=== PATIENT | female | born 1930 | race Caucasian/White ===

== ENCOUNTER 2016-03-21 15:06 | Emergency (ER) | payer OTHER ==
[~2016-03-21] VITALS: Ht 165.1 cm; Wt 79.8 kg
[~2016-03-21 15:06] MED LIST: ASCOCRY2 PO; ASPI81TA28 PO; CHOLTAB3 PO; DIGE1CAP7 PO; HAWTCAP PO; LEVO25TA5 PO; MAGN400T6 PO; MISCTAB PO; MULT-513 PO; ONDA4TAB46 PO; VITA400C15 PO
[2016-03-21 15:15] VITALS: TEMP 36.8; Ht 165.1 cm; Wt 79.8 kg
[2016-03-21] MEDS ORDERED: CHOL400T PO (15:42)
[2016-03-21] MEDS ORDERED: VITA400C3 PO (15:42)
[2016-03-21 16:06] LABS: BASO % 0.8 %; BASO ABS # 0.04 K/uL (0-0.2); COMPLETE YES; HEMATOCRIT 40.8 % (37-47); IG% 0.2 %; LYMPH % 32.9 %; LYMPH ABS # 1.62 K/uL (1.2-3.4); MEAN CELL VOLUME 95.8 fL (80-100); MEAN CORPUSCULAR HEMOGLOBIN 34.3 pg (25-34); MEAN CORPUSCULAR HGB CONC 35.8 g/dl (32-36); MEAN PLATELET VOLUME 9.9 fL (7.4-10.4); MONO % 10.5 %; NEUT % 53.6 %; PLATELET COUNT 221 K/uL (130-400); RED BLOOD COUNT 4.26 M/uL (4.2-5.4); WHITE BLOOD COUNT 4.93 K/uL (4.8-10.8)
--- NOTE | 2016-03-21 16:15 | EMERGENCY ROOM VISIT NOTE ---
ED Visit Note First contact with patient: 15:23 I have seen and examined this patient with Otf Feliz and generally agree with the treatment plan as discussed. Problem List Medical Problems: (1) Bronchitis Status: Resolved (2) Digestive problems Status: Chronic (3) Heart disease Status: Chronic Current/Historical Medications Scheduled Ascorbic Acid (Nathaly-C), Unknown Dose PO DAILY Aspirin (Aspirin Ec), 81 MG PO DAILY Cholecalciferol (Vitamin D), Unknown Dose PO DAILY Digestive Enzymes (Digestive Enzymes), 1 CAP PO WM [place] ([place] G[place]al), 550 MG PO DAILY Levothyroxine Sodium (Levothyroxine Sodium), 25 MCG PO DAILY Magnesium Oxide (Mag-Ox), 400 MG PO PM Multivitamins/Minerals (Mvi With Minerals), 1 TAB PO DAILY Vitamin E (Vitamin E 400 Iu), 400 INTER.UNIT PO DAILY Scheduled PRN Misc Natural Products (Dmg), 1 CAP PO DAILY PRN for SUPPLEMENT Allergies Coded Allergies: No Known Allergies (Unverified , 01/12/16) Vital Signs Date Time Temp Pulse Resp B/P Pulse Ox O2 Delivery O2 Flow Rate FiO2 03/21/16 15:15 36.8 85 18 194/98 98 Room Air Laboratory Results 03/21/16 15:50 Red Blood Count 4.26, Mean Corpuscular Volume 95.8, Mean Corpuscular Hemoglobin 34.3, Mean Corpuscular Hemoglobin Concent 35.8, Mean Platelet Volume 9.9, Neutrophils (%) (Auto) 53.6, Lymphocytes (%) (Auto) 32.9, Monocytes (%) (Auto) 10.5, Eosinophils (%) (Auto) 2.0, Basophils (%) (Auto) 0.8, Neutrophils # (Auto ) 2.64, Lymphocytes # (Auto) 1.62, Monocytes # (Auto) 0.52, Eosinophils # (Auto ) 0.10, Basophils # (Auto) 0.04 Test 03/21/16 15:50 White Blood Count 4.93 K/uL (4.8-10.8) Red Blood Count 4.26 M/uL (4.2-5.4) Hemoglobin 14.6 g/dL (12.0-16.0) Hematocrit 40.8 % (37-47) Mean Corpuscular Volume 95.8 fL (80-100) Mean Corpuscular Hemoglobin 34.3 pg (25-34) Mean Corpuscular Hemoglobin Concent 35.8 g/dl (32-36) Platelet Count 221 K/uL (130-400) Mean Platelet Volume 9.9 fL (7.4-10.4) Neutrophils (%) (Auto) 53.6 % Lymphocytes (%) (Auto) 32.9 % Monocytes (%) (Auto) 10.5 % Eosinophils (%) (Auto) 2.0 % Basophils (%) (Auto) 0.8 % Neutrophils # (Auto) 2.64 K/uL (1.4-6.5) Lymphocytes # (Auto) 1.62 K/uL (1.2-3.4) Monocytes # (Auto) 0.52 K/uL (0.11-0.59) Eosinophils # (Auto) 0.10 K/uL (0-0.5) Basophils # (Auto) 0.04 K/uL (0-0.2) RDW Standard Deviation 44.5 fL (36.4-46.3) RDW Coefficient of Variation 12.8 % (11.5-14.5) Immature Granulocyte % (Auto) 0.2 % Immature Granulocyte # (Auto) 0.01 K/uL (0.00-0.02) Departure Information Referrals Stevie Oh M.D. (PCP) Patient Instructions My [facility]
[2016-03-21 16:23] LABS: BUN/CREATININE RATIO 9.1 (10-20); CALCIUM 8.7 mg/dl (8.5-10.1); CREATININE 0.75 mg/dl (0.60-1.20); POTASSIUM 3.7 mmol/L (3.5-5.1)
[2016-03-21] MEDS ORDERED: OPTIRAY 320 IV PRN (16:30)
--- NOTE | 2016-03-21 17:19 | DIAGNOSTIC IMAGING REPORT ---
MAXILLOFACIAL CT WITH CONTRAST CT DOSE: 689.70 mGy.cm CLINICAL HISTORY: Left sided facial/jaw pain. TECHNIQUE: Axial images through the face were obtained following intravenous injection of 116 cc of Optiray 320 IV. Coronal and sagittal reformats were viewed. COMPARISON STUDY: Head CT July 27, 2010. FINDINGS: Visualized portions of the intracranial contents are unremarkable on this examination. The orbits are within normal limits. Sinuses and mastoid air cells are clear. Major vasculature of the upper neck is patent. No abnormalities of the parotid or submandibular glands are present. This examination is compromised by streak artifact from multiple dental amalgams. Several teeth are absent. No odontogenic abscess is identified. Visualized portions of the airway are patent. Epiglottis is normal. There is a moderate-sized joint effusion of the left temporomandibular joint. There is irregular contour with flattening of the left mandibular condyle with subchondral lucency. Flattening with irregularity the right mandibular condyle is noted. No right temporomandibular joint effusion is identified. IMPRESSION: Left temporomandibular joint effusion with synovial enhancement. This joint effusion is nonspecific and is statistically degenerative in etiology. However, a septic arthritis or rheumatoid arthritis could appear similar. Significant joint space narrowing with irregularity of the mandibular condyles and glenoid fossae bilaterally consistent with arthritis of both temporomandibular joints. Electronically signed by: Austin Jimenez M.D. 03/21/2016 5:17 PM Dictated Date/Time: 03/21/2016 5:07 PM
[2016-03-21] MEDS ORDERED: METH4PAK PO (18:02)
[2016-03-21 18:14] VITALS: BP 184/90; PULSE 82; O2SAT 97
--- NOTE | 2016-03-22 14:48 | EMERGENCY ROOM VISIT NOTE ---
ED Visit Note First contact with patient: 15:23 Chief Complaint: Left-sided jaw pain. History of Present Illness: Ms. Nam is an 85-year-old white female who ambulates into the ED accompanied by her complaining of left sided mandibular pain in the area of the TMJ. Patient reports in January she bit down on a hard bagel and developed jaw pain. She reports for 3 or 4 days the pain was severe but then gradually decreasing in intensity. Over the last 24 hours it has rebounded and has become more severe. She describes her pain as a deep achy sensation. She rates her discomfort 8/ 10. The pain radiates into the entire left side of the face. Her pain worsens with opening and closing of the jaw, palpation. She is not identified any alleviating factors related to the pain. She has not taken any medications for pain prior to arrival at the hospital. She denies any associated symptoms including fevers, chills, sweats, skin eruptions, headaches, dizziness, lightheadedness, recent direct trauma, dental pain, facial swelling, fevers, hearing changes, visual changes, neck pain/stiffness, difficulty swallowing, sensations of throat swelling, upper respiratory tract symptoms, shortness of breath, chest pain, palpitations, abdominal pain, decreased appetite, nausea/ vomiting. Review of Systems: As noted above in history of present illness. All body systems were reviewed and found to be negative as noted above. Past Medical History: Mitral valve prolapse, hypothyroidism, pulmonary embolism. Current Medications: Medications Dose Route/Sig Max Daily Dose Days Date Category Vitamin E 400 Iu (Vitamin E) 400 Unit Cap 400 Inter.unit PO DAILY 03/21/16 Reported Vitamin D (Cholecalciferol) 400 Unit Tab Unknown Dose PO DAILY 03/21/16 Reported Aspirin Ec (Aspirin) 81 Mg Tab 81 Mg PO DAILY 09/05/15 Reported Dmg (Misc Natural Products) 1 Tab Tab 1 Cap PO DAILY PRN 09/05/15 Reported Mag-Ox (Magnesium Oxide) 400 Mg Tab 400 Mg PO PM 09/05/15 Reported Nathaly-C (Ascorbic Acid) 1 Cry Cry Unknown Dose PO DAILY 09/05/15 Reported Digestive Enzymes 1 Cap Cap 1 Cap PO WM 03/12/15 Reported [place] ([place]) 550 Mg Cap 550 Mg PO DAILY 03/12/15 Reported Mvi With Minerals (Multivitamins/Minerals) Tab 1 Tab PO DAILY 03/12/15 Reported Levothyroxine Sodium 25 Mcg Tab 25 Mcg PO DAILY 03/12/15 Reported Allergies to Medications: Patient denies. Social History: Patient is not employed; she lives with family and feels safe in her home environment; she denies tobacco and alcohol use. Physical Examination: Vital Signs: Date Time Temp Pulse Resp B/P Pulse Ox O2 Delivery O2 Flow Rate FiO2 03/21/16 18:14 82 20 184/90 97 03/21/16 17:14 88 18 184/87 95 Room Air 03/21/16 15:15 36.8 85 18 194/98 98 Room Air GENERAL: 85-year-old female in mild distress due to pain, nontoxic-appearing, afebrile and hemodynamically stable. NEUROLOGICAL: Awake, alert and oriented to person, place and time. Answering questions appropriately and following commands. Normal gait. Good hand eye coordination. No focal motor sensory deficits. Cranial nerves II through XII grossly intact. No facial droop. Normal speech. SKIN: Warm, dry and pink. No soft tissue eruptions or trauma noted. HEENT: Atraumatic and normocephalic. No facial erythema or swelling. PERRLA. EOMI without nystagmus. Sclera white and conjunctiva pink. No drainage from naris. Oral cavity moist and pink. No dental tenderness or signs of decay. Pharynx is nonerythematous or edematous. No tonsillar hypertrophy or exudates. Speech normal. No lymphadenopathy. No tenderness or erythema over the mastoid processes. Trachea midline. No jugular venous distention. No carotid bruits. BACK: No tenderness over the bony cervical and thoracic spine. THORAX: Lungs sounds are clear to auscultation and equal bilaterally with symmetrical chest wall. No wheezing, rales or rhonchi. No crepitus, tenderness , subcutaneous air or deformities noted. HEART: Regular rate and rhythm. No gallops, rubs or murmurs are appreciated. ABDOMEN: Flat, soft and nontender. Positive bowel sounds in all quadrants. No guarding, rigidity or organomegaly. EXTREMITIES: Moves all extremities well on command and with purpose. All distal neurovascular statuses are intact and equal bilaterally. ED Course: Patient is assessed as noted above. Laboratory Testing: Test 03/21/16 15:50 Range/Units White Blood Count 4.93 4.8-10.8 K/uL Red Blood Count 4.26 4.2-5.4 M/uL Hemoglobin 14.6 12.0-16.0 g/dL Hematocrit 40.8 37-47 % Mean Corpuscular Volume 95.8 80-100 fL Mean Corpuscular Hemoglobin 34.3 25-34 pg Mean Corpuscular Hemoglobin Concent 35.8 32-36 g/dl Platelet Count 221 130-400 K/uL Mean Platelet Volume 9.9 7.4-10.4 fL Neutrophils (%) (Auto) 53.6 % Lymphocytes (%) (Auto) 32.9 % Monocytes (%) (Auto) 10.5 % Eosinophils (%) (Auto) 2.0 % Basophils (%) (Auto) 0.8 % Neutrophils # (Auto) 2.64 1.4-6.5 K/uL Lymphocytes # (Auto) 1.62 1.2-3.4 K/uL Monocytes # (Auto) 0.52 0.11-0.59 K/uL Eosinophils # (Auto) 0.10 0-0.5 K/uL Basophils # (Auto) 0.04 0-0.2 K/uL RDW Standard Deviation 44.5 36.4-46.3 fL RDW Coefficient of Variation 12.8 11.5-14.5 % Immature Granulocyte % (Auto) 0.2 % Immature Granulocyte # (Auto) 0.01 0.00-0.02 K/uL Erythrocyte Sedimentation Rate 15 0-21 mm/hr Sodium Level 142 136-145 mmol/L Potassium Level 3.7 3.5-5.1 mmol/L Chloride Level 107 98-107 mmol/L Carbon Dioxide Level 24 21-32 mmol/L Anion Gap 11.0 3-11 mmol/L Blood Urea Nitrogen 7 7-18 mg/dl Creatinine 0.75 0.60-1.20 mg/dl Est Creatinine Clear Calc Drug Dose 58.3 ml/min Estimated GFR () 84.8 Estimated GFR (Non- 73.2 BUN/Creatinine Ratio 9.1 10-20 Random Glucose 150 70-99 mg/dl Calcium Level 8.7 8.5-10.1 mg/dl Facial CT: Was reviewed by myself and read by the radiologist showing left temporomandibular joint effusion with synovial Yanez. Significant joint narrowing with irregularity of the mandibular condyles and glenoid fossa bilaterally consistent with arthritis. Patient was offered pain medications and refused. Patient was reassessed multiple times during her stay in the emergency department. Patient's case was reviewed with Dr. Calderon; he independently assessed the patient and we agreed on diagnostic approach, treatment, disposition and plan. Patient was educated about tonight's findings and instructed on her treatment plan; she verbalizes understanding and agreement with this plan. Clinical Impression: Left TMJ disorder. Left TMJ joint effusion. Decision-Making: Initially my differential diagnosis I considered TMJ disease, otitis externa, dental infection, temporal arteritis, myocardial infarction and other causes. Disposition: Patient discharged home in stable condition accompanied by her ; prior to departure she was reassessed and subjectively reported she was feeling slightly better and rated her discomfort 5/10. Plan: Patient was encouraged to alternate ibuprofen and acetaminophen as needed for pain. Patient was prescribed a Medrol Dosepak and instructed on achieves. Patient was encouraged use ice on areas of pain. Patient was encouraged to avoid excessive chewing and consider a liquid or mechanical soft diet. Patient was encouraged to follow-up with her PCP for recheck and possible referral to oral surgery and/or ENT surgery. Patient was encouraged return ED for worsening/uncontrolled pain, facial swelling, fevers or any new/concerning symptoms.
== END 2016-03-21 18:18 | disposition home or self-care (01) ==
LOC: C.EDB 15:08 → C.EDA 18:18
DX: M26.602 Left temporomandibular joint disorder, unspecified (principal); M25.48 Effusion, other site; E03.9 Hypothyroidism, unspecified; Z86.711 Personal history of pulmonary embolism; I34.1 Nonrheumatic mitral (valve) prolapse; Z79.82 Long term (current) use of aspirin; Z79.899 Other long term (current) drug therapy

== ENCOUNTER 2016-04-03 21:18 | Emergency (ER) | payer OTHER ==
[~2016-04-03] VITALS: Ht 165.1 cm; Wt 76.8 kg
[~2016-04-03 21:18] MED LIST changes: +CHOL400T PO; -CHOLTAB3 PO; -ONDA4TAB46 PO; -VITA400C15 PO; +VITA400C3 PO
[2016-04-03 21:22] VITALS: TEMP 36.4; Ht 165.1 cm; Wt 76.8 kg
[2016-04-03] MEDS ORDERED: ONDANSETRON INJ 2 MG/ML 2 ML VIAL IV STA ×2 (21:34→22:59)
[2016-04-03] MEDS ORDERED: SODIUM CHLORIDE 0.9% 1000ML 1,000 ML IV STA (21:34)
[2016-04-03] MEDS ORDERED: SODIUM CHLORIDE 0.9% 1000ML 1,000 ML IV ONE (21:34)
--- NOTE | 2016-04-03 21:48 | EMERGENCY ROOM VISIT NOTE ---
History Report prepared by Portia: Rocio Shelton Under the Supervision of: Dr. Hector Sanderson M.D. First contact with patient: 21:30 Chief Complaint: VOMITING Stated Complaint: VOMITTING, DIZZINESS History of Present Illness The patient is a 85 year old female who presents to the Emergency Room with complaints of intermittent vomiting beginning 6 hours ago. The patient complains of diarrhea, dizziness, and spinning. She notes that her dizziness is worse when she lays back. She denies any trauma, fall, headache, shortness of breath, abdominal pain, and numbness or weakness. She states that she is not on blood thinners now but was recently taken of Xarelto for a previous blood clot in the lungs. She did eat some burritos for dinner and felt sick afterwards. Nobody else was sick. No blood in her vomit or stool. No chest pain or shortness of breath. No recent illness or flulike symptoms. No urinary symptoms. Source of History: patient, family, spouse/significant other Onset: 6 hours ago Position: other (global) Timing: intermittent Associated Symptoms: + diarrhea, No SOB, No abdominal pain, No headache, No numbness, No weakness Note: The patient complains of dizziness, and spinning.She denies any trauma, Review of Systems See HPI for pertinent positives & negatives. A total of 10 systems reviewed and were otherwise negative. Past Medical & Surgical Medical Problems: (1) Bronchitis (2) Digestive problems (3) Heart disease (4) Pulmonary embolism Old medical records were reviewed. Nurse's notes were reviewed and I agree with. Family History FHx: stroke Gallbladder disease Heart disease Social History Smoking Status: Never Smoker Alcohol Use: none Drug Use: none Marital Status: Housing Status: lives with family Occupation Status: retired Current/Historical Medications Scheduled Ascorbic Acid (Nathaly-C), Unknown Dose PO DAILY Aspirin (Aspirin Ec), 81 MG PO DAILY Cholecalciferol (Vitamin D), Unknown Dose PO DAILY Digestive Enzymes (Digestive Enzymes), 1 CAP PO WM [place] ([place]), 550 MG PO DAILY Levothyroxine Sodium (Levothyroxine Sodium), 25 MCG PO DAILY Magnesium Oxide (Mag-Ox), 400 MG PO PM Multivitamins/Minerals (Mvi With Minerals), 1 TAB PO DAILY Ondasetron Odt (Zofran Odt), 4 MG SL Q6H Vitamin E (Vitamin E 400 Iu), 400 INTER.UNIT PO DAILY Scheduled PRN Misc Natural Products (Dmg), 1 CAP PO DAILY PRN for SUPPLEMENT Allergies Coded Allergies: No Known Allergies (Unverified , 01/12/16) Physical Exam Vital Signs Date Time Temp Pulse Resp B/P Pulse Ox O2 Delivery O2 Flow Rate FiO2 04/04/16 00:56 72 18 176/83 96 04/03/16 23:28 81 18 172/87 99 Room Air 04/03/16 22:22 84 18 183/89 99 Room Air 04/03/16 21:22 36.4 84 18 203/92 99 Room Air Physical Exam General: Uncomfortable older female who is holding emesis bag and having intermittent vomiting. HEENT: Normal cephalic atraumatic. Pupils are equal round and reactive to light. Extraocular movements are intact. Oropharynx is pink with moist mucous membranes. No swelling of the mouth lips or tongue. Neck: Supple with a midline trachea. No meningeal signs or stiffness, no JVD or bruits. No Stridor. Chest: Clear to auscultation bilaterally. No wheezes or rhonchi. No increased work of breathing. Heart: regular rate and rhythm. Abdomen: Soft nontender, nondistended without rebound guarding or rigidity. Extremities: No cyanosis clubbing or edema. No calf tenderness or assymetry Spine/Back. Non tender to palpation. No CVA tenderness Skin: Good turgor without rashes. Neurologic exam: Cranial nerves two through 12 are intact. Motor and sensation are intact and symmetrical throughout. No tremor. Finger-nose intact. Medical Decision & Procedures ER Provider Diagnostic Interpretation: CT results as stated below per my review and radiologist interpretation: CT HEAD WITHOUT CONTRAST (CT) FINDINGS: No intra or extra-axial mass lesions are visualized. There is no CT evidence of acute cortical infarction. There is no evidence of midline shift. There is no acute hemorrhage. No calvarial fractures are visualized. There are patchy white matter hypodensities likely on a small vessel basis. There is no evidence of pathologic ventricular dilatation. There is no evidence of acute sinusitis IMPRESSION: No acute intracranial findings Electronically signed by: Jagjit Curiel M.D. 04/03/2016 10:40 PM Dictated Date/Time: 04/03/2016 10:39 PM Laboratory Results 04/03/16 22:09 Red Blood Count 4.13, Mean Corpuscular Volume 97.1, Mean Corpuscular Hemoglobin 34.4, Mean Corpuscular Hemoglobin Concent 35.4, Mean Platelet Volume 9.9, Neutrophils (%) (Auto) 56.9, Lymphocytes (%) (Auto) 29.5, Monocytes (%) (Auto) 10.2, Eosinophils (%) (Auto) 2.3, Basophils (%) (Auto) 1.1, Neutrophils # (Auto ) 2.50, Lymphocytes # (Auto) 1.30, Monocytes # (Auto) 0.45, Eosinophils # (Auto ) 0.10, Basophils # (Auto) 0.05 04/03/16 22:09 Test 04/03/16 22:09 04/03/16 22:16 White Blood Count 4.40 K/uL (4.8-10.8) Red Blood Count 4.13 M/uL (4.2-5.4) Hemoglobin 14.2 g/dL (12.0-16.0) Hematocrit 40.1 % (37-47) Mean Corpuscular Volume 97.1 fL (80-100) Mean Corpuscular Hemoglobin 34.4 pg (25-34) Mean Corpuscular Hemoglobin Concent 35.4 g/dl (32-36) Platelet Count 189 K/uL (130-400) Mean Platelet Volume 9.9 fL (7.4-10.4) Neutrophils (%) (Auto) 56.9 % Lymphocytes (%) (Auto) 29.5 % Monocytes (%) (Auto) 10.2 % Eosinophils (%) (Auto) 2.3 % Basophils (%) (Auto) 1.1 % Neutrophils # (Auto) 2.50 K/uL (1.4-6.5) Lymphocytes # (Auto) 1.30 K/uL (1.2-3.4) Monocytes # (Auto) 0.45 K/uL (0.11-0.59) Eosinophils # (Auto) 0.10 K/uL (0-0.5) Basophils # (Auto) 0.05 K/uL (0-0.2) RDW Standard Deviation 45.8 fL (36.4-46.3) RDW Coefficient of Variation 12.9 % (11.5-14.5) Immature Granulocyte % (Auto) 0.0 % Immature Granulocyte # (Auto) 0.00 K/uL (0.00-0.02) Anion Gap 8.0 mmol/L (3-11) Est Creatinine Clear Calc Drug Dose 62.2 ml/min Estimated GFR () 92.6 Estimated GFR (Non- 79.9 BUN/Creatinine Ratio 15.2 (10-20) Calcium Level 8.8 mg/dl (8.5-10.1) Total Bilirubin 0.4 mg/dl (0.2-1) Direct Bilirubin < 0.1 mg/dl (0-0.2) Aspartate Amino Transf (AST/SGOT) 29 U/L (15-37) Alanine Aminotransferase (ALT/SGPT) 43 U/L (12-78) Alkaline Phosphatase 97 U/L (45-117) Total Protein 7.0 gm/dl (6.4-8.2) Albumin 3.5 gm/dl (3.4-5.0) Lipase 299 U/L (73-393) Bedside Troponin I 0.000 ng/ml (0-0.045) Laboratory studies as stated above per my review. Medications Administered Medications (Trade) Dose Ordered Sig/Sarah Route Start Time Stop Time Status Last Admin Dose Admin Sodium Chloride 1,000 ml @ 999 mls/hr Q1H1M STAT IV 04/03/16 21:34 04/03/16 22:34 DC 04/03/16 22:20 999 MLS/HR Sodium Chloride (Nss 1000ml) 1,000 ml @ 150 mls/hr Q6H40M ONCE IV 04/03/16 21:34 04/04/16 01:14 DC 04/03/16 22:20 150 MLS/HR Ondansetron HCl (Zofran Inj) 4 mg NOW STAT IV 04/03/16 21:34 04/03/16 21:36 DC 04/03/16 22:20 4 MG Ondansetron HCl (Zofran Inj) 4 mg NOW STAT IV 04/03/16 22:59 04/03/16 23:01 DC 04/03/16 23:25 4 MG Meclizine HCl (Antivert Tab) 25 mg NOW STAT PO 04/03/16 22:59 04/03/16 23:01 DC 04/03/16 23:25 25 MG Ondansetron HCl (ZOFRAN ODT 4MG Home Pack) 1 homepack UD ONCE PO 04/04/16 00:45 04/04/16 00:46 DC 04/04/16 00:42 1 HOMEPACK ECG Indication: vomiting Rate (beats per minute): 78 Rhythm: normal sinus Findings: no acute ischemic change, no ectopy, other (poor r wave progression) Comparison ECG Date: 09/05/15 Change: no significant change ED Course 2129: Past medical records reviewed. The patient was evaluated in room C8, and a complete history and physical examination were performed. 2133: Zofran Inj 4mg IV, Sodium Chloride 1000 ml @ 150 mls/hr IV, Sodium Chloride 1000 ml @ 999 mls/hr IV. 2258: Antivert Tab 25mg PO, Zofran Inj 4mg IV. 7: I reevaluated the patient . She is more comfortable but still feels nauseated. 0015: I reevaluated the patient. She is mildly nauseated and tried to get up to go to the bathroom but had to use a bed goel. 0034: I reevaluated the patient. She is feeling better and notes that she has a history of GI problems. 0045: Ondansetron HCl 1 homepack PO. 0049: Upon reevaluation, the patient is hemodynamically stable. I discussed the results and treatment plan with the patient. She verbalized agreement of the treatment plan. The patient was discharged home. Medical Decision Differential diagnoses vertigo, gastroenteritis, acute coronary syndrome, dehydration, electrolyte or metabolic abnormality. This patient comes in as described above .she comes in complaining of nausea or vomiting feeling dizzy. She says she feels sick when she thinks about what she ate for dinner. She has no abdominal pain or diarrhea. She's no chest pain or shortness of breath. She was placed on a front end architect in room C9. IV access established and she was hydrated IV normal saline and received over a liter of IV normal saline while she was here. She also received IV Zofran 2 as well as meclizine. Multiple blood testing was obtained. Her potassium is mildly low at 3.2 however she has no other acute electrolyte metabolic abnormalities. She has nothing to suggest infection or sepsis or significant anemia. She's had nothing to suggest acute coronary syndrome or arrhythmia. She has nothing this is suggest stroke or CVA. She is feeling significant better and would like to go home. I had her ambulate and she did so without ataxia or problems. She will be discharged home. She can use antiemetics as prescribed and be careful and when getting up and down . return if: Worsening symptoms, numbness weakness, fever chills, chest pain, shortness breath, any new problems concerns. She should follow-up with her regular doctor in 1-2 days for recheck. The patient and her family were happy with the plan and she was discharged to home. Impression Primary Impression: Vertigo Additional Impression: Vomiting Scribe Attestation The scribe's documentation has been prepared under my direction and personally reviewed by me in its entirety. I confirm that the note above accurately reflects all work, treatment, procedures, and medical decision making performed by me. Departure Information Dispostion Home / Self-Care Prescriptions Ondasetron Odt (ZOFRAN ODT) 4 Mg Tab 4 MG SL Q6H for Nausea, #10 TAB Prov: Hector Sanderson M.D. 04/04/16 Referrals Stevie Oh M.D. (PCP) Forms HOME CARE DOCUMENTATION FORM, IMPORTANT VISIT INFORMATION Patient Instructions My [facility] Additional Instructions Rest Drink plenty of fluids. Mild diet. Slowly advance. Use Nausea or vomiting, use Zofran 4 mg every 6 hours as needed Return if: Worsening symptoms, not tolerating fluids, fever chills, any new problems or concerns Follow-up with your doctor Tuesday for recheck. Problem Qualifiers
[2016-04-03 22:30] LABS: BASO % 1.1 %; BASO ABS # 0.05 K/uL (0-0.2); COMPLETE YES; EOS % 2.3 %; HEMATOCRIT 40.1 % (37-47); LYMPH % 29.5 %; MEAN CELL VOLUME 97.1 fL (80-100); MEAN CORPUSCULAR HEMOGLOBIN 34.4 pg (25-34); MEAN CORPUSCULAR HGB CONC 35.4 g/dl (32-36); MEAN PLATELET VOLUME 9.9 fL (7.4-10.4); MONO % 10.2 %; NEUT % 56.9 %; PLATELET COUNT 189 K/uL (130-400); RED BLOOD COUNT 4.13 M/uL (4.2-5.4)
[2016-04-03 22:36] LABS: ALT/SGPT 43 U/L (12-78); BLOOD UREA NITROGEN 11 mg/dl (7-18); BUN/CREATININE RATIO 15.2 (10-20); CALCIUM 8.8 mg/dl (8.5-10.1); CARBON DIOXIDE 25 mmol/L (21-32); CHLORIDE 103 mmol/L (98-107); CREATININE 0.69 mg/dl (0.60-1.20); GLUCOSE 123 mg/dl (70-99); POTASSIUM 3.2 mmol/L (3.5-5.1); SODIUM 136 mmol/L (136-145)
[2016-04-03 22:39] LABS: ALKALINE PHOSPHATASE 97 U/L (45-117); AST/SGOT 29 U/L (15-37)
--- NOTE | 2016-04-03 22:41 | DIAGNOSTIC IMAGING REPORT ---
CT HEAD WITHOUT CONTRAST (CT) CLINICAL HISTORY: dizziness COMPARISON STUDY: 07/27/2010 TECHNIQUE: Axial CT of the brain is performed from the vertex to the skull base. IV contrast was not administered for this examination. CT DOSE: 655.73 mGy.cm FINDINGS: No intra or extra-axial mass lesions are visualized. There is no CT evidence of acute cortical infarction. There is no evidence of midline shift. There is no acute hemorrhage. No calvarial fractures are visualized. There are patchy white matter hypodensities likely on a small vessel basis. There is no evidence of pathologic ventricular dilatation. There is no evidence of acute sinusitis IMPRESSION: No acute intracranial findings Electronically signed by: Jagjit Curiel M.D. 04/03/2016 10:40 PM Dictated Date/Time: 04/03/2016 10:39 PM
[2016-04-03] MEDS ORDERED: MECLIZINE HCL 25 MG TAB PO STA (22:59)
[2016-04-04] MEDS ORDERED: ONDA4TAB10 SL (00:36)
[2016-04-04] MEDS ORDERED: ONDANSETRON HOME PACK 4MG OD TAB PO ONE (00:45)
[2016-04-04 00:56] VITALS: BP 176/83; PULSE 72; O2SAT 96
== END 2016-04-04 00:58 | disposition home or self-care (01) ==
LOC: C.EDB 21:20 → C.EDC 04-04 00:58
DX: R42 Dizziness and giddiness (principal); R11.10 Vomiting, unspecified; I51.9 Heart disease, unspecified; Z86.711 Personal history of pulmonary embolism; Z87.19 Personal history of other diseases of the digestive system; Z79.82 Long term (current) use of aspirin; Z79.899 Other long term (current) drug therapy; Z83.79 Family history of other diseases of the digestive system; Z82.49 Family history of ischemic heart disease and other diseases of the circulatory system; Z82.0 Family history of epilepsy and other diseases of the nervous system

== ENCOUNTER 2016-06-22 08:27 | Emergency (ER) | payer OTHER ==
[~2016-06-22 08:27] MED LIST changes: +ONDA4TAB10 SL
[2016-06-22 08:32] VITALS: TEMP 36.4
[2016-06-22 09:21] LABS: BASO % 2.1 %; BASO ABS # 0.08 K/uL (0-0.2); COMPLETE YES; EOS % 3.4 %; HEMATOCRIT 40.9 % (37-47); LYMPH % 48.7 %; LYMPH ABS # 1.88 K/uL (1.2-3.4); MEAN CELL VOLUME 99.3 fL (80-100); MEAN CORPUSCULAR HEMOGLOBIN 34.5 pg (25-34); MEAN CORPUSCULAR HGB CONC 34.7 g/dl (32-36); MEAN PLATELET VOLUME 10.2 fL (7.4-10.4); NEUT % 32.8 %; PLATELET COUNT 206 K/uL (130-400); RED BLOOD COUNT 4.12 M/uL (4.2-5.4); WHITE BLOOD COUNT 3.86 K/uL (4.8-10.8)
--- NOTE | 2016-06-22 09:24 | DIAGNOSTIC IMAGING REPORT ---
CHEST ONE VIEW PORTABLE CLINICAL HISTORY: cp dyspnea COMPARISON STUDY: 03/12/2015 FINDINGS: The bones soft tissues and hemidiaphragms are normal. The cardiomediastinal silhouette is normal. The lungs are clear. The pulmonary vasculature is normal. IMPRESSION: Negative chest. Electronically signed by: Lobo Proctor M.D. 06/22/2016 9:23 AM Dictated Date/Time: 06/22/2016 9:21 AM
[2016-06-22 09:51] LABS: ALT/SGPT 33 U/L (12-78); AST/SGOT 23 U/L (15-37); BLOOD UREA NITROGEN 9 mg/dl (7-18); BUN/CREATININE RATIO 14.1 (10-20); CALCIUM 8.7 mg/dl (8.5-10.1); CARBON DIOXIDE 28 mmol/L (21-32); CHLORIDE 109 mmol/L (98-107); CREATININE 0.61 mg/dl (0.60-1.20); GLUCOSE 90 mg/dl (70-99); POTASSIUM 3.9 mmol/L (3.5-5.1); SODIUM 142 mmol/L (136-145)
[2016-06-22 09:52] LABS: INR 1.1 (0.9-1.1); PROTHROMBIN TIME (PATIENT) 11.3 SECONDS (9.0-12.0)
[2016-06-22 09:55] LABS: ALKALINE PHOSPHATASE 95 U/L (45-117)
[2016-06-22] MEDS ORDERED: OPTIRAY 320 IV PRN (10:00)
[2016-06-22 10:09] LABS: URINE APPEARANCE CLEAR (CLEAR); URINE BILIRUBIN NEG (NEG); URINE COLOR YELLOW; URINE NITRITE NEG (NEG); URINE PH 6.5 (4.5-7.5); URINE SPECIFIC GRAVITY 1.014 (1.000-1.030); UROBILINOGEN NEG (NEG); ZZUR CULT IF INDIC CLEAN CATCH NO
[2016-06-22 10:17] LABS: MANUAL MICROSCOPIC REQUIRED? NO; REVIEW REQ? NO
--- NOTE | 2016-06-22 10:45 | DIAGNOSTIC IMAGING REPORT ---
CT ANGIOGRAM OF THE CHEST CLINICAL HISTORY: Atypical chest pain. Dyspnea. COMPARISON STUDY: Chest CT scans dated 03/12/2015 and 06/29/2014. TECHNIQUE: Following the IV administration of 91 cc of Optiray 320, CT angiogram of the chest was performed from the upper abdomen to the thoracic inlet utilizing the pulmonary embolus protocol. Images are reviewed in the axial, sagittal, and coronal planes. 3-D MIPS images are created and assessed. IV contrast was administered without complication. CT DOSE: 239.40 mGy.cm FINDINGS: Thyroid: Imaged portions of the thyroid gland are normal in size and attenuation. Thoracic aorta: The thoracic aorta is normal in caliber and demonstrates standard 3-vessel arch anatomy. No dissection is seen. Pulmonary vasculature: The main pulmonary arteries are dilated suggesting pulmonary artery hypertension. There are no filling defects identified in main, lobar, or segmental pulmonary branches to suggest pulmonary embolus. Heart: The heart is enlarged and there is trace pericardial effusion. There are coronary artery calcifications. Lungs and pleural spaces: There is biapical scarring. Scarring versus atelectasis is present at both lung bases. No airspace consolidation is identified typical for pneumonia. No pleural effusion is seen. The trachea and central airways are clear. Scattered calcified granulomas are noted. Mediastinum: There is no mediastinal lymphadenopathy. Nusrat: Clear. Axillae: There is no axillary lymphadenopathy. 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 A tiny hiatal hernia is noted. Skeletal structures: The skeletal structures are osteopenic. Mild degenerative change is noted throughout the thoracic spine and in the shoulders. No lytic or blastic bony lesions are seen. IMPRESSION: 1. There is no evidence of pulmonary embolus in the main, lobar, or segmental pulmonary arteries. 2. There is no airspace consolidation typical for pneumonia or pleural effusion. 3. Cardiomegaly. 4. Additional findings as above. Electronically signed by: Jeremy Fleming M.D. 06/22/2016 10:43 AM Dictated Date/Time: 06/22/2016 10:37 AM
[2016-06-22 12:15] VITALS: BP 159/86; PULSE 76; O2SAT 95
--- NOTE | 2016-06-22 13:52 | EMERGENCY ROOM VISIT NOTE ---
History Report prepared by Portia: Caitlin Najera Under the Supervision of: Dr. Yariel Aviles D.O. First contact with patient: 08:38 Chief Complaint: FLANK PAIN Stated Complaint: RIGHT SIDE PAIN History of Present Illness The patient is a 85 year old female who presents to the Emergency Room with complaints of waxing and waning right-sided chest and back pain that started 2 days ago. The pain never goes away and worsened yesterday. The pain has been unchanged since yesterday. The patient states that she woke up with the pain 2 days ago. She states that nothing that she has done has relieved her pain. The pain gets worse with movement, but does not change with breathing. She denies cough, rhinorrhea, hemoptysis, sore throat, shortness of breath, nausea, vomiting, diarrhea, and lower extremity edema. She states that she has been eating and drinking normally. The patient states that her bowel movements have also been normal. She still has her gallbladder. The patient states that she had pain last year and was diagnosed with a blood clot so she felt that she needed to be evaluated to make sure that she didn't have another one. She is unsure of if her pain today feels similar to the pain she experienced with the blood clot. The patient is not on any blood thinners currently, but she states that she was on Xarelto last year after she was diagnosed with a blood clot. Source of History: patient Onset: 2 days ago Position: chest (right), back (right) Quality: other (right-sided chest and back pain) Timing: waxes/wanes, worsening Modifying Factors (Worsening): movement Associated Symptoms: No SOB, No cough, No diarrhea, No nausea, No sorethroat , No vomiting Note: no rhinorrhea, no hemoptysis, no lower extremity edema Review of Systems See HPI for pertinent positives & negatives. A total of 10 systems reviewed and were otherwise negative. Past Medical & Surgical Medical Problems: (1) Bronchitis (2) Digestive problems (3) Heart disease (4) Pulmonary embolism Family History FHx: stroke Gallbladder disease Heart disease Social History Smoking Status: Never Smoker Alcohol Use: none Drug Use: none Marital Status: Housing Status: lives with family Occupation Status: retired Current/Historical Medications Scheduled Ascorbic Acid (Nathaly-C), Unknown Dose PO DAILY Aspirin (Aspirin Ec), 81 MG PO DAILY Cholecalciferol (Vitamin D), Unknown Dose PO DAILY Digestive Enzymes (Digestive Enzymes), 1 CAP PO WM Lowry (Lowry Grewal), 550 MG PO DAILY Levothyroxine Sodium (Levothyroxine Sodium), 25 MCG PO DAILY Magnesium Oxide (Mag-Ox), 400 MG PO PM Multivitamins/Minerals (Mvi With Minerals), 1 TAB PO DAILY Ondasetron Odt (Zofran Odt), 4 MG SL Q6H Vitamin E (Vitamin E 400 Iu), 400 INTER.UNIT PO DAILY Scheduled PRN Misc Natural Products (Dmg), 1 CAP PO DAILY PRN for SUPPLEMENT Allergies Coded Allergies: No Known Allergies (Unverified , 01/12/16) Physical Exam Vital Signs Date Time Temp Pulse Resp B/P Pulse Ox O2 Delivery O2 Flow Rate FiO2 06/22/16 12:15 76 20 159/86 95 06/22/16 11:35 78 17 152/88 96 Room Air 06/22/16 10:36 78 22 165/61 97 Room Air 06/22/16 09:40 67 20 160/66 96 Room Air 06/22/16 09:00 66 18 134/92 94 06/22/16 08:59 71 20 155/81 97 06/22/16 08:55 73 06/22/16 08:32 36.4 72 18 148/76 95 Room Air Physical Exam GENERAL: alert, sitting up in bed, well appearing, well nourished, no acute distress, non-toxic EYE EXAM: normal conjunctiva OROPHARYNX: no exudate, no erythema, lips, buccal mucosa, and tongue normal and mucous membranes are moist NECK: supple, no nuchal rigidity, no adenopathy, non-tender LUNGS: Clear to auscultation. Normal chest wall mechanics HEART: no murmurs, S1 normal and S2 normal CHEST: Reproducible right anterior chest wall tenderness. ABDOMEN: abdomen soft, non-tender, normo-active bowel sounds, no masses, no rebound or guarding. BACK: Back is symmetrical on inspection and there is no deformity, right paraspinal tenderness in upper thoracic region, no midline tenderness, no CVA tenderness. SKIN: no rashes and no bruising UPPER EXTREMITIES: upper extremities are grossly normal. LOWER EXTREMITIES: No pitting edema. NEURO EXAM: Normal sensorium, cranial nerves II-XII grossly intact, normal speech, no gross weakness of arms, no gross weakness of legs. Medical Decision & Procedures ER Provider Diagnostic Interpretation: Radiology results as stated below per my review and the radiologist's interpretation: CHEST ONE VIEW PORTABLE FINDINGS: The bones soft tissues and hemidiaphragms are normal. The cardiomediastinal silhouette is normal. The lungs are clear. The pulmonary vasculature is normal. IMPRESSION: Negative chest. Electronically signed by: Lobo Proctor M.D. 06/22/2016 9:23 AM Dictated Date/Time: 06/22/2016 9:[address] ANGIOGRAM OF THE CHEST FINDINGS: Thyroid: Imaged portions of the thyroid gland are normal in size and attenuation. Thoracic aorta: The thoracic aorta is normal in caliber and demonstrates standard 3-vessel arch anatomy. No dissection is seen. Pulmonary vasculature: The main pulmonary arteries are dilated suggesting pulmonary artery hypertension. There are no filling defects identified in main, lobar, or segmental pulmonary branches to suggest pulmonary embolus. Heart: The heart is enlarged and there is trace pericardial effusion. There are coronary artery calcifications. Lungs and pleural spaces: There is biapical scarring. Scarring versus atelectasis is present at both lung bases. No airspace consolidation is identified typical for pneumonia. No pleural effusion is seen. The trachea and central airways are clear. Scattered calcified granulomas are noted. Mediastinum: There is no mediastinal lymphadenopathy. Nusrat: Clear. Axillae: There is no axillary lymphadenopathy. 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 A tiny hiatal hernia is noted. Skeletal structures: The skeletal structures are osteopenic. Mild degenerative change is noted throughout the thoracic spine and in the shoulders. No lytic or blastic bony lesions are seen. IMPRESSION: 1. There is no evidence of pulmonary embolus in the main, lobar, or segmental pulmonary arteries. 2. There is no airspace consolidation typical for pneumonia or pleural effusion. 3. Cardiomegaly. 4. Additional findings as above. Electronically signed by: Jeremy Fleming M.D. 06/22/2016 10:43 AM Dictated Date/Time: 06/22/2016 10:37 AM Laboratory Results 06/22/16 08:55 Red Blood Count 4.12, Mean Corpuscular Volume 99.3, Mean Corpuscular Hemoglobin 34.5, Mean Corpuscular Hemoglobin Concent 34.7, Mean Platelet Volume 10.2, Neutrophils (%) (Auto) 32.8, Lymphocytes (%) (Auto) 48.7, Monocytes (%) (Auto) 13.0, Eosinophils (%) (Auto) 3.4, Basophils (%) (Auto) 2.1, Neutrophils # (Auto ) 1.27, Lymphocytes # (Auto) 1.88, Monocytes # (Auto) 0.50, Eosinophils # (Auto ) 0.13, Basophils # (Auto) 0.08 06/22/16 08:55 Test 06/22/16 08:45 06/22/16 08:55 06/22/16 11:05 Urine Color YELLOW Urine Appearance CLEAR (CLEAR) Urine pH 6.5 (4.5-7.5) Urine Specific [place] 1.014 (1.000-1.030) Urine Protein NEG (NEG) Urine Glucose (UA) NEG (NEG) Urine Ketones NEG (NEG) Urine Occult Blood NEG (NEG) Urine Nitrite NEG (NEG) Urine Bilirubin NEG (NEG) Urine Urobilinogen NEG (NEG) Urine Leukocyte Esterase MODERATE (NEG) Urine WBC (Auto) 5-10 /hpf (0-5) Urine RBC (Auto) 0-4 /hpf (0-4) Urine Hyaline Casts (Auto) 1-5 /lpf (0-5) Urine Epithelial Cells (Auto) 10-20 /lpf (0-5) Urine Bacteria (Auto) NEG (NEG) White Blood Count 3.86 K/uL (4.8-10.8) Red Blood Count 4.12 M/uL (4.2-5.4) Hemoglobin 14.2 g/dL (12.0-16.0) Hematocrit 40.9 % (37-47) Mean Corpuscular Volume 99.3 fL (80-100) Mean Corpuscular Hemoglobin 34.5 pg (25-34) Mean Corpuscular Hemoglobin Concent 34.7 g/dl (32-36) Platelet Count 206 K/uL (130-400) Mean Platelet Volume 10.2 fL (7.4-10.4) Neutrophils (%) (Auto) 32.8 % Lymphocytes (%) (Auto) 48.7 % Monocytes (%) (Auto) 13.0 % Eosinophils (%) (Auto) 3.4 % Basophils (%) (Auto) 2.1 % Neutrophils # (Auto) 1.27 K/uL (1.4-6.5) Lymphocytes # (Auto) 1.88 K/uL (1.2-3.4) Monocytes # (Auto) 0.50 K/uL (0.11-0.59) Eosinophils # (Auto) 0.13 K/uL (0-0.5) Basophils # (Auto) 0.08 K/uL (0-0.2) RDW Standard Deviation 47.0 fL (36.4-46.3) RDW Coefficient of Variation 12.9 % (11.5-14.5) Immature Granulocyte % (Auto) 0.0 % Immature Granulocyte # (Auto) 0.00 K/uL (0.00-0.02) Prothrombin Time 11.3 SECONDS (9.0-12.0) Prothromb Time International Ratio 1.1 (0.9-1.1) D-Dimer 1140 ug/L FEU (0-500) Anion Gap 5.0 mmol/L (3-11) Estimated GFR () 96.5 Estimated GFR (Non- 83.2 BUN/Creatinine Ratio 14.1 (10-20) Calcium Level 8.7 mg/dl (8.5-10.1) Total Bilirubin 0.6 mg/dl (0.2-1) Direct Bilirubin 0.1 mg/dl (0-0.2) Aspartate Amino Transf (AST/SGOT) 23 U/L (15-37) Alanine Aminotransferase (ALT/SGPT) 33 U/L (12-78) Alkaline Phosphatase 95 U/L (45-117) Total Protein 6.9 gm/dl (6.4-8.2) Albumin 3.6 gm/dl (3.4-5.0) Lipase 314 U/L (73-393) Troponin I < 0.015 ng/ml (0-0.045) Laboratory results per my review. ECG Indication: chest pain Rate (beats per minute): 71 Rhythm: sinus rhythm Findings: Q waves (Posterior), left axis deviation ED Course ED COURSE: Vital signs were reviewed and showed normal. The patients medical record was reviewed The above diagnostic studies were performed and reviewed. ED treatments and interventions as stated above. 0847: The patient was evaluated in room A12. A complete history and physical examination was performed. 1025: I went to reassess the patient, but she was at CT. 1101: I reassessed and updated the patient. 1157: Upon reevaluation, the patient is doing well. I discussed my findings with the patient and she understands and agrees with the treatment plan. Based on the patients age, coexisting illnesses, exam and lab findings the decision to treat as an outpatient was made. The patient remained stable while under my care. The patient appeared well at the time of discharge. Medical Decision Differential diagnoses includes but is not limited to acute coronary syndrome, myocardial infarction, pericarditis, pulmonary embolus, aortic dissection, pneumonia, pneumothorax, musculoskeletal, shingles, esophageal. Patient is an 85-year-old female who presents the ER for right sided chest pain which has been present since this past Tuesday. The intensity comes and goes but it has been persistent. It has never resolved. It's worse with twisting turning bending. It also present along her right thoracic paraspinal region. No shortness of breath, jaw pain or neck pain. Symptoms did worsen yesterday and have been unchanged since mid-day yesterday. Pain is reproducible on the back. She does have a history of previous PEs. D-dimer was positive. CT PE was negative. Aorta was unremarkable. No signs of dissection. No signs of pneumonia. EKG was unchanged. CBC along with BMP, LFTs, 2 negative troponins with chest pain that has been present for greater than 24 hours. Lipase is negative. UA was contaminated with multiple epithelial cells. Patient was updated at bedside and felt significantly better following discussion with the negative CT PE. She requested to be discharged. I did feel this is reasonable. I did explain that this would be very unlikely to be her heart but we cannot be 100% sure. She was comfortable with this and was discharged follow -up with her primary care doctor. Discussed with Pt concerning signs and symptoms to watch out for. Pt was instructed to follow up with their PCP and discussed with the patient their option to return to the ED at anytime for persistent or worsening symptoms. The appropriate anticipatory guidance and out- patient management, including indications for return to the emergency department , were explained at length to the patient and understood. Impression Primary Impression: Right-sided chest pain Additional Impression: Thoracic back pain Scribe Attestation The scribe's documentation has been prepared under my direction and personally reviewed by me in its entirety. I confirm that the note above accurately reflects all work, treatment, procedures, and medical decision making performed by me. Departure Information Dispostion Home / Self-Care Referrals Stevie Oh M.D. (PCP) Forms HOME CARE DOCUMENTATION FORM, IMPORTANT VISIT INFORMATION Patient Instructions Chest Pain - [facility], ED Back Pain Acute Chronic, My [facility] Additional Instructions Please follow up with your primary care doctor with in the next 24 hours. Any worsening of your symptoms, please return to the ED immediately. This includes fevers grade and 100.4, weakness or numbness in arms or legs, chest pain associated with shortness of breath, left-sided chest pain, passing out, or any other concerning signs or symptoms from your standpoint. Please take Motrin or Tylenol as needed for pain. Problem Qualifiers Additional Impression: Thoracic back pain Chronicity: acute Back pain laterality: right Qualified Codes: M54.6 - Pain in thoracic spine
== END 2016-06-22 12:18 | disposition home or self-care (01) ==
LOC: C.EDB 08:29 → C.EDA 12:18
DX: R07.9 Chest pain, unspecified (principal); M54.6 Pain in thoracic spine; I51.9 Heart disease, unspecified; Z86.711 Personal history of pulmonary embolism; Z87.19 Personal history of other diseases of the digestive system; Z79.82 Long term (current) use of aspirin; Z79.899 Other long term (current) drug therapy; Z82.3 Family history of stroke; Z82.49 Family history of ischemic heart disease and other diseases of the circulatory system; Z83.79 Family history of other diseases of the digestive system

== ENCOUNTER → 2016-08-25 | Outpatient (CLI) | payer OTHER | END | disposition home or self-care (01) | LOC: C.LABBC 14:00 | PROVIDERS: ATTEND Internal Medicine | DX: E03.9 Hypothyroidism, unspecified (principal) ==

== ENCOUNTER 2016-11-08 23:49 | Emergency (ER) | payer OTHER ==
[~2016-11-08] VITALS: Ht 167.6 cm; Wt 74.8 kg
[~2016-11-08 23:49] MED LIST changes: -ONDA4TAB10 SL
[2016-11-09 00:03] VITALS: TEMP 36.7; Ht 167.6 cm; Wt 74.8 kg
[2016-11-09] MEDS ORDERED: ASPIRIN 81 MG CHEW PO STA (00:28)
[2016-11-09 00:37] LABS: BASO ABS # 0.05 K/uL (0-0.2); COMPLETE YES; EOS % 2.2 %; IG% 0.2 %; LYMPH % 38.4 %; LYMPH ABS # 1.96 K/uL (1.2-3.4); MEAN CELL VOLUME 97.9 fL (80-100); MEAN CORPUSCULAR HEMOGLOBIN 33.9 pg (25-34); MEAN CORPUSCULAR HGB CONC 34.6 g/dl (32-36); MEAN PLATELET VOLUME 9.7 fL (7.4-10.4); MONO % 10.2 %; PLATELET COUNT 226 K/uL (130-400); RED BLOOD COUNT 4.19 M/uL (4.2-5.4)
--- NOTE | 2016-11-09 00:42 | EMERGENCY ROOM VISIT NOTE ---
History Report prepared by Portia: Abilio Pascal Under the Supervision of: Dr. Carol Hernandez M.D. First contact with patient: 00:12 Chief Complaint: SHOULDER PAIN Stated Complaint: SHOULDER PAIN History of Present Illness The patient is an 86 year old female who presents to the Emergency Room with complaints of intermittent left shoulder pain beginning this evening. The patient states her pain began this evening, went away, and then returned. The patient notes that her pain radiates to her left chest. She reports she just returned from [facility], and she does not remember lifting anything heavy. She states they drove to [facility], and her legs are extremely sore because she is not used to walking that much. The patient notes it does not hurt to move her shoulder, and it currently does not hurt. She states massaging her shoulder alleviates her pain when it was present. The patient reports she has had this pain before. She notes she takes a baby aspirin daily. The patient denies taking Xarelto, abdominal pain, nausea, discomfort upon exertion, discomfort upon deep breathing , and shortness of breath upon exertion. She notes she has a history of blood clots. The patient states she has had an echocardiogram, and she was diagnosis with MVP. She denies a history of smoking. Source of History: patient Onset: this evening Position: shoulder (left) Timing: intermittent Modifying Factors (Relieving): other (massaging it) Associated Symptoms: + chest pain, No SOB (upon exertion), No vomiting, No abdominal pain Note: Denies: discomfort upon exertion, discomfort upon deep breathing Review of Systems See HPI for pertinent positives & negatives. A total of 10 systems reviewed and were otherwise negative. Past Medical & Surgical Medical Problems: (1) Bronchitis (2) Digestive problems (3) Heart disease (4) Pulmonary embolism Family History FHx: stroke Gallbladder disease Heart disease Social History Smoking Status: Never Smoker Alcohol Use: none Drug Use: none Marital Status: Housing Status: lives with family Occupation Status: retired Current/Historical Medications Scheduled Aspirin (Aspirin Ec), 81 MG PO DAILY Cholecalciferol (Vitamin D), Unknown Dose PO DAILY Digestive Enzymes (Digestive Enzymes), 1 CAP PO WM [place] ([place] Grewal), 550 MG PO DAILY Levothyroxine Sodium (Levothyroxine Sodium), 25 MCG PO DAILY Magnesium Oxide (Mag-Ox), 400 MG PO PM Multivitamins/Minerals (Mvi With Minerals), 1 TAB PO DAILY Vitamin E (Vitamin E 400 Iu), 400 INTER.UNIT PO DAILY Allergies Coded Allergies: No Known Allergies (Unverified , 11/09/16) Physical Exam Vital Signs Date Time Temp Pulse Resp B/P (MAP) Pulse Ox O2 Delivery O2 Flow Rate FiO2 11/09/16 02:31 66 16 149/70 96 Room Air 11/09/16 02:30 66 16 149/70 96 Room Air 11/09/16 01:34 71 20 170/88 97 Room Air 11/09/16 00:23 79 11/09/16 00:03 36.7 76 18 175/87 96 Physical Exam Vital signs reviewed. General: Well-appearing 86 year old female, in no significant distress. HEENT: No scleral icterus, PERRLA, neck supple. Atraumatic. Cardiovascular: Regular rate and rhythm, no extra sounds. Pulmonary: Clear to auscultation bilaterally, normal work of breathing. Abdomen: Soft, nontender, nondistended, positive bowel sounds. Musculoskeletal: Atraumatic, no peripheral edema. Left shoulder without evidence of trauma. Full range of motion without difficulty. No pain with deep inspiration. Neurologic: Patient awake alert and oriented x 3 Skin: Warm, dry, no rash Medical Decision & Procedures ER Provider Diagnostic Interpretation: Radiology results as stated below per my review and radiologist interpretation: US VENOUS BILATERAL LOWER EXTREMITIES: No DVT. No masses or adenopathy. Radiologist: Angus Wood MD Study ready at 0141 and initial results transmitted at 0143. Left shoulder x-ray min 2 views: degenerative changes noted, no deformity or dislocation. Chest x-ray one view: normal mediastina silhouette, no focal lung consolidation , no failure. Laboratory Results 11/09/16 00:24 Red Blood Count 4.19, Mean Corpuscular Volume 97.9, Mean Corpuscular Hemoglobin 33.9, Mean Corpuscular Hemoglobin Concent 34.6, Mean Platelet Volume 9.7, Neutrophils (%) (Auto) 48.0, Lymphocytes (%) (Auto) 38.4, Monocytes (%) (Auto) 10.2, Eosinophils (%) (Auto) 2.2, Basophils (%) (Auto) 1.0, Neutrophils # (Auto ) 2.45, Lymphocytes # (Auto) 1.96, Monocytes # (Auto) 0.52, Eosinophils # (Auto ) 0.11, Basophils # (Auto) 0.05 11/09/16 00:24 Test 11/09/16 00:24 11/09/16 02:07 White Blood Count 5.10 K/uL (4.8-10.8) Red Blood Count 4.19 M/uL (4.2-5.4) Hemoglobin 14.2 g/dL (12.0-16.0) Hematocrit 41.0 % (37-47) Mean Corpuscular Volume 97.9 fL (80-100) Mean Corpuscular Hemoglobin 33.9 pg (25-34) Mean Corpuscular Hemoglobin Concent 34.6 g/dl (32-36) Platelet Count 226 K/uL (130-400) Mean Platelet Volume 9.7 fL (7.4-10.4) Neutrophils (%) (Auto) 48.0 % Lymphocytes (%) (Auto) 38.4 % Monocytes (%) (Auto) 10.2 % Eosinophils (%) (Auto) 2.2 % Basophils (%) (Auto) 1.0 % Neutrophils # (Auto) 2.45 K/uL (1.4-6.5) Lymphocytes # (Auto) 1.96 K/uL (1.2-3.4) Monocytes # (Auto) 0.52 K/uL (0.11-0.59) Eosinophils # (Auto) 0.11 K/uL (0-0.5) Basophils # (Auto) 0.05 K/uL (0-0.2) RDW Standard Deviation 45.7 fL (36.4-46.3) RDW Coefficient of Variation 12.8 % (11.5-14.5) Immature Granulocyte % (Auto) 0.2 % Immature Granulocyte # (Auto) 0.01 K/uL (0.00-0.02) Anion Gap 9.0 mmol/L (3-11) Est Creatinine Clear Calc Drug Dose 65.4 ml/min Estimated GFR () 93.8 Estimated GFR (Non- 81.0 BUN/Creatinine Ratio 14.9 (10-20) Calcium Level 9.2 mg/dl (8.5-10.1) Total Bilirubin 0.4 mg/dl (0.2-1) Direct Bilirubin 0.1 mg/dl (0-0.2) Aspartate Amino Transf (AST/SGOT) 36 U/L (15-37) Alanine Aminotransferase (ALT/SGPT) 41 U/L (12-78) Alkaline Phosphatase 117 U/L (45-117) Total Creatine Kinase 93 U/L (26-192) Creatine Kinase MB 0.7 ng/ml (0.5-3.6) Creatine Kinase MB Ratio 0.8 (0-3.0) Total Protein 7.5 gm/dl (6.4-8.2) Albumin 3.9 gm/dl (3.4-5.0) Bedside Troponin I < 0.030 ng/ml (0-0.045) Laboratory results per my review. Medications Administered Medications (Trade) Dose Ordered Sig/Sarah Route Start Time Stop Time Status Last Admin Dose Admin Aspirin (Aspirin Chew) 243 mg NOW STAT PO 11/09/16 00:28 11/09/16 00:29 DC 11/09/16 00:33 243 MG ECG Indication: back/shoulder pain Rate (beats per minute): 73 Rhythm: sinus rhythm Findings: other (Premature supraventricular complexs, previous septal infarcts) Comparison ECG Date: 06/22/16 Change: no significant change ED Course 0027: Past medical records reviewed. The patient was evaluated in room A02. A complete history and physical examination was performed. 0028: Ordered Aspirin 243mg PO 0209: I reevaluated the patient. She is resting comfortably. I discussed the need for a second troponin, and her current exam findings and test results. 2039: Upon reevaluation, the patient appeared to have improvement of her symptoms. I discussed findings with her. She verbalized agreement of the treatment plan. The patient was discharged home. Medical Decision Differential diagnoses includes acute coronary syndrome, pulmonary embolus, aortic dissection, musculoskeletal pain, pneumonia, pleural effusion, pneumothorax, gastritis, peptic ulcer disease. This patient was evaluated and appeared to be in no significant distress. IV access was obtained and laboratory work was drawn. Patient was given 243 mg of aspirin to chew. She had taken 1 baby aspirin earlier in the day. 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 Laboratory work reveals negative cardiac enzymes 2. Patient was informed of her elevated blood pressures in the emergency department. She'll follow-up with her primary care physician regarding this finding as well as her chest pain. She has had no recurrence of chest pain since she has been here. Patient was discharged and will return to the ER for worsening of symptoms or any medical concerns. Medication Reconcilliation Current Medication List: was personally reviewed by me Blood Pressure Screening Patient's blood pressure: Elevated blood pressure Blood pressure disposition: Referred to PCP Impression Primary Impression: Nonspecific chest pain Scribe Attestation The scribe's documentation has been prepared under my direction and personally reviewed by me in its entirety. I confirm that the note above accurately reflects all work, treatment, procedures, and medical decision making performed by me. Departure Information Dispostion Home / Self-Care Referrals Stevie Oh M.D. (PCP) Forms HOME CARE DOCUMENTATION FORM, IMPORTANT VISIT INFORMATION Patient Instructions My [facility] Additional Instructions Diagnosis: Chest pain Please continue your medications as prescribed. Follow-up with Dr. Oh this week for blood pressure recheck and consideration of further cardiac evaluation. Return to the ER immediately for worsening of symptoms or any medical concerns.
[2016-11-09 01:05] LABS: BUN/CREATININE RATIO 14.9 (10-20); CALCIUM 9.2 mg/dl (8.5-10.1); CREATININE 0.65 mg/dl (0.60-1.20); POTASSIUM 3.8 mmol/L (3.5-5.1)
[2016-11-09 01:10] LABS: CKMB/CK RATIO 0.8 (0-3.0)
[2016-11-09 02:31] VITALS: BP 149/70; PULSE 66; O2SAT 96
--- NOTE | 2016-11-09 06:37 | DIAGNOSTIC IMAGING REPORT ---
CHEST ONE VIEW PORTABLE HISTORY: 86 years-old Female L CP acute left-sided chest and shoulder pain. No known trauma. COMPARISON: Portable chest radiograph 06/22/2016 TECHNIQUE: Portable upright AP view of the chest FINDINGS: Cardiac silhouette is again mildly enlarged. There is atherosclerosis of the aorta. Mild biapical pleural-parenchymal scarring without pneumothorax, pleural effusion, focal airspace consolidation or overt edema. The bones appear grossly intact. IMPRESSION: No acute cardiopulmonary process. The above report was generated using voice recognition software. It may contain grammatical, syntax or spelling errors. Electronically signed by: Jayce Bobo M.D. 11/09/2016 6:36 AM Dictated Date/Time: 11/09/2016 6:35 AM
--- NOTE | 2016-11-09 06:39 | DIAGNOSTIC IMAGING REPORT ---
BILATERAL LOWER EXTREMITY VENOUS DOPPLER HISTORY: Acute bilateral lower extremity pain BLE calf pain COMPARISON STUDY: Duplex study 07/22/2015. FINDINGS: There is normal compressibility, flow, and augmentation within the bilateral lower extremity deep venous systems. IMPRESSION: No sonographic evidence of deep venous thrombosis within the right or left lower extremity. Electronically signed by: Jayce Bobo M.D. 11/09/2016 6:37 AM Dictated Date/Time: 11/09/2016 6:36 AM
--- NOTE | 2016-11-09 06:43 | DIAGNOSTIC IMAGING REPORT ---
L SHOULDER MIN 2 VIEWS ROUTINE HISTORY: 86 years-old Female L shoulder pain acute left shoulder pain. COMPARISON: Chest radiograph of same day TECHNIQUE: 3 views of the left shoulder FINDINGS: Bones are mildly demineralized. Mild to moderate acromioclavicular and glenohumeral joint degenerative changes are noted. There is question chondrocalcinosis of the AC joint. No acute fracture or dislocation is identified. No intra-articular loose body. Pleural-parenchymal scarring involves the imaged lung apices. There is atherosclerosis of the aorta. IMPRESSION: 1. No acute fracture or dislocation. 2. Mild to moderate degenerative changes of the left shoulder with background bone demineralization. The above report was generated using voice recognition software. It may contain grammatical, syntax or spelling errors. Electronically signed by: Jayce Bobo M.D. 11/09/2016 6:41 AM Dictated Date/Time: 11/09/2016 6:39 AM
== END 2016-11-09 02:39 | disposition home or self-care (01) ==
LOC: C.EDB 23:50 → C.EDA 11-09 02:39
DX: R07.9 Chest pain, unspecified (principal); I51.9 Heart disease, unspecified; Z86.711 Personal history of pulmonary embolism; Z83.79 Family history of other diseases of the digestive system; Z82.49 Family history of ischemic heart disease and other diseases of the circulatory system; Z79.82 Long term (current) use of aspirin; Z79.899 Other long term (current) drug therapy

== ENCOUNTER 2017-01-10 22:48 | Emergency (ER) | payer OTHER ==
[~2017-01-10] VITALS: Ht 165.1 cm; Wt 75.1 kg
[~2017-01-10 22:48] MED LIST changes: -ASCOCRY2 PO; -MISCTAB PO
[2017-01-10 22:51] VITALS: TEMP 37.1; Ht 165.1 cm; Wt 75.1 kg
[2017-01-10 23:39] LABS: BASO % 0.8 %; BASO ABS # 0.04 K/uL (0-0.2); COMPLETE YES; IG% 0.2 %; LYMPH % 22.2 %; LYMPH ABS # 1.12 K/uL (1.2-3.4); MEAN CORPUSCULAR HEMOGLOBIN 33.9 pg (25-34); MEAN CORPUSCULAR HGB CONC 34.6 g/dl (32-36); MONO % 10.9 %; NEUT % 63.9 %; PLATELET COUNT 206 K/uL (130-400); RED BLOOD COUNT 3.98 M/uL (4.2-5.4); WHITE BLOOD COUNT 5.04 K/uL (4.8-10.8)
[2017-01-10 23:58] LABS: BLOOD UREA NITROGEN 9 mg/dl (7-18); BUN/CREATININE RATIO 13.2 (10-20); CALCIUM 8.5 mg/dl (8.5-10.1); CARBON DIOXIDE 25 mmol/L (21-32); CHLORIDE 108 mmol/L (98-107); CREATININE 0.66 mg/dl (0.60-1.20); GLUCOSE 97 mg/dl (70-99); POTASSIUM 3.6 mmol/L (3.5-5.1); SODIUM 138 mmol/L (136-145)
--- NOTE | 2017-01-11 00:20 | EMERGENCY ROOM VISIT NOTE ---
ED Visit Note First contact with patient: 22:58 Patient seen by me at 12:19 AM. I agree with physician assistants workup. We have reviewed labs chest x-ray EKG. Patient will be able to be discharged we suspect upper respiratory tract symptoms. There is no evidence of pneumonia all questions were answered with the patient and the patient's family at bedside Problem List Medical Problems: (1) Bronchitis Status: Resolved (2) Digestive problems Status: Chronic (3) Heart disease Status: Chronic Current/Historical Medications Scheduled Aspirin (Aspirin Ec), 81 MG PO DAILY Cholecalciferol (Vitamin D), Unknown Dose PO DAILY Digestive Enzymes (Digestive Enzymes), 1 CAP PO WM [place] ([place] Grewal), 550 MG PO DAILY Levothyroxine Sodium (Levothyroxine Sodium), 25 MCG PO DAILY Magnesium Oxide (Mag-Ox), 400 MG PO PM Multivitamins/Minerals (Mvi With Minerals), 1 TAB PO DAILY Vitamin E (Vitamin E 400 Iu), 400 INTER.UNIT PO DAILY Allergies Coded Allergies: No Known Allergies (Unverified , 01/10/17) Vital Signs Date Time Temp Pulse Resp B/P (MAP) Pulse Ox O2 Delivery O2 Flow Rate FiO2 01/10/17 22:54 94 Room Air 01/10/17 22:51 37.1 86 20 173/72 94 Room Air Laboratory Results 01/10/17 23:15 Red Blood Count 3.98, Mean Corpuscular Volume 98.0, Mean Corpuscular Hemoglobin 33.9, Mean Corpuscular Hemoglobin Concent 34.6, Mean Platelet Volume 10.0, Neutrophils (%) (Auto) 63.9, Lymphocytes (%) (Auto) 22.2, Monocytes (%) (Auto) 10.9, Eosinophils (%) (Auto) 2.0, Basophils (%) (Auto) 0.8, Neutrophils # (Auto ) 3.22, Lymphocytes # (Auto) 1.12, Monocytes # (Auto) 0.55, Eosinophils # (Auto ) 0.10, Basophils # (Auto) 0.04 01/10/17 23:15 Test 01/10/17 23:15 White Blood Count 5.04 K/uL (4.8-10.8) Red Blood Count 3.98 M/uL (4.2-5.4) Hemoglobin 13.5 g/dL (12.0-16.0) Hematocrit 39.0 % (37-47) Mean Corpuscular Volume 98.0 fL (80-100) Mean Corpuscular Hemoglobin 33.9 pg (25-34) Mean Corpuscular Hemoglobin Concent 34.6 g/dl (32-36) Platelet Count 206 K/uL (130-400) Mean Platelet Volume 10.0 fL (7.4-10.4) Neutrophils (%) (Auto) 63.9 % Lymphocytes (%) (Auto) 22.2 % Monocytes (%) (Auto) 10.9 % Eosinophils (%) (Auto) 2.0 % Basophils (%) (Auto) 0.8 % Neutrophils # (Auto) 3.22 K/uL (1.4-6.5) Lymphocytes # (Auto) 1.12 K/uL (1.2-3.4) Monocytes # (Auto) 0.55 K/uL (0.11-0.59) Eosinophils # (Auto) 0.10 K/uL (0-0.5) Basophils # (Auto) 0.04 K/uL (0-0.2) RDW Standard Deviation 45.5 fL (36.4-46.3) RDW Coefficient of Variation 12.6 % (11.5-14.5) Immature Granulocyte % (Auto) 0.2 % Immature Granulocyte # (Auto) 0.01 K/uL (0.00-0.02) Anion Gap 5.0 mmol/L (3-11) Est Creatinine Clear Calc Drug Dose 63.2 ml/min Estimated GFR () 93.4 Estimated GFR (Non- 80.6 BUN/Creatinine Ratio 13.2 (10-20) Calcium Level 8.5 mg/dl (8.5-10.1) Troponin I < 0.015 ng/ml (0-0.045) Departure Information Referrals Stevie Oh M.D. (PCP) Patient Instructions My [facility]
--- NOTE | 2017-01-11 00:34 | EMERGENCY ROOM VISIT NOTE ---
History First contact with patient: 22:58 Chief Complaint: CONGESTION Stated Complaint: CONGESTION Nursing Triage Summary: Patient ambulatory to triage with a steady and upright gait, drinking coffee, states "I have congestion in my throat and chest. It started this morning. I am not really able to cough much up." Patient denies any shortness of breath, productive cough, chest pain or trouble breathing. History of Present Illness The patient is a 86 year old female who presents to the Emergency Room with complaints of "congestion". The patient states that this morning she began with a cough, and congestion in her throat. She denies any chest pain or shortness of breath. She states that because she is aging she would like to make sure that this is nothing serious. She has history of pneumonia and notes that she had very few symptoms with this in the past. She denies any urinary symptoms. She states that 1-2 hours ago she did have one ibuprofen. She questions if she is having some drainage from the sinuses. They do note that prior to arrival her temperature was 99.9F orally. And then returned to 98.6 F orally. Review of Systems A complete 6-point Review of Systems was discussed with the patient, with pertinent positives and negatives listed in the History of Present Illness. All remaining Review of Systems questions can be considered negative unless otherwise specified. Past Medical/Surgical History Medical Problems: (1) Bronchitis (2) Digestive problems (3) Heart disease (4) Pulmonary embolism Family History FHx: stroke Gallbladder disease Heart disease Social History Smoking Status: Never Smoker Alcohol Use: none Drug Use: none Marital Status: Housing Status: lives with family Occupation Status: retired Current/Historical Medications Scheduled Aspirin (Aspirin Ec), 81 MG PO DAILY Cholecalciferol (Vitamin D), Unknown Dose PO DAILY Digestive Enzymes (Digestive Enzymes), 1 CAP PO WM [place] ([place] Grewal), 550 MG PO DAILY Levothyroxine Sodium (Levothyroxine Sodium), 25 MCG PO DAILY Magnesium Oxide (Mag-Ox), 400 MG PO PM Multivitamins/Minerals (Mvi With Minerals), 1 TAB PO DAILY Vitamin E (Vitamin E 400 Iu), 400 INTER.UNIT PO DAILY Physical Exam Vital Signs Date Time Temp Pulse Resp B/P (MAP) Pulse Ox O2 Delivery O2 Flow Rate FiO2 01/11/17 00:45 84 173/87 96 01/10/17 22:54 94 Room Air 01/10/17 22:51 37.1 86 20 173/72 94 Room Air Physical Exam VITAL SIGNS - Vital signs and nursing notes were reviewed. Stable. Hypertensive. GENERAL -86-year-old female appearing her stated age who is in no acute distress. She is well-appearing and nontoxic. Communicates well with provider and answers questions appropriately. SKIN - Without rashes. No petechial rashes. HEAD - NC/AT. EYES - Sclera anicteric. EARS - No deformities of external structures noted on gross examination bilaterally. No pain elicited with palpation of the tragus bilaterally. External auditory canals without discharge or otorrhea. Tympanic membranes pearly chavira without retraction or bulging. No fluid or purulent material visualized behind the TM. Handle of malleus, umbo, cone of light, pars tensa/ flaccid all easily visualized. NOSE - Midline and without cyanosis. No epistaxis or purulent drainage noted. MOUTH/OROPHARYNX - Without perioral cyanosis. NECK - Neck with FROM. Supple to palpation. No lymphadenopathy noted. No nuchal rigidity. LUNGS - Chest wall symmetric without accessory muscle use, intercostals retractions, or central cyanosis. Normal vesicular breath sounds CTA B/L. No wheezes, rales, or rhonchi appreciated. CARDIAC - RRR with S1/S2. No murmur, rubs, or gallops appreciated. Medical Decision & Procedures ER Provider Diagnostic Interpretation: X-ray chest 1 view as read by myself and reviewed with the attending physician. No active disease in the chest. No blunting of the costophrenic angle. No pneumonia or consolidation. Laboratory Results 01/10/17 23:15 Red Blood Count 3.98, Mean Corpuscular Volume 98.0, Mean Corpuscular Hemoglobin 33.9, Mean Corpuscular Hemoglobin Concent 34.6, Mean Platelet Volume 10.0, Neutrophils (%) (Auto) 63.9, Lymphocytes (%) (Auto) 22.2, Monocytes (%) (Auto) 10.9, Eosinophils (%) (Auto) 2.0, Basophils (%) (Auto) 0.8, Neutrophils # (Auto ) 3.22, Lymphocytes # (Auto) 1.12, Monocytes # (Auto) 0.55, Eosinophils # (Auto ) 0.10, Basophils # (Auto) 0.04 01/10/17 23:15 Test 01/10/17 23:15 White Blood Count 5.04 K/uL (4.8-10.8) Red Blood Count 3.98 M/uL (4.2-5.4) Hemoglobin 13.5 g/dL (12.0-16.0) Hematocrit 39.0 % (37-47) Mean Corpuscular Volume 98.0 fL (80-100) Mean Corpuscular Hemoglobin 33.9 pg (25-34) Mean Corpuscular Hemoglobin Concent 34.6 g/dl (32-36) Platelet Count 206 K/uL (130-400) Mean Platelet Volume 10.0 fL (7.4-10.4) Neutrophils (%) (Auto) 63.9 % Lymphocytes (%) (Auto) 22.2 % Monocytes (%) (Auto) 10.9 % Eosinophils (%) (Auto) 2.0 % Basophils (%) (Auto) 0.8 % Neutrophils # (Auto) 3.22 K/uL (1.4-6.5) Lymphocytes # (Auto) 1.12 K/uL (1.2-3.4) Monocytes # (Auto) 0.55 K/uL (0.11-0.59) Eosinophils # (Auto) 0.10 K/uL (0-0.5) Basophils # (Auto) 0.04 K/uL (0-0.2) RDW Standard Deviation 45.5 fL (36.4-46.3) RDW Coefficient of Variation 12.6 % (11.5-14.5) Immature Granulocyte % (Auto) 0.2 % Immature Granulocyte # (Auto) 0.01 K/uL (0.00-0.02) Anion Gap 5.0 mmol/L (3-11) Est Creatinine Clear Calc Drug Dose 63.2 ml/min Estimated GFR () 93.4 Estimated GFR (Non- 80.6 BUN/Creatinine Ratio 13.2 (10-20) Calcium Level 8.5 mg/dl (8.5-10.1) Troponin I < 0.015 ng/ml (0-0.045) Medical Decision Patient was seen and evaluated as above. She presents to us today with congestion. Blood pressure was felt to be elevated secondary to situation. Medication list reviewed. Chest x-ray was obtained to rule out pneumonia, this was not apparent. Chest x-ray clear. IV access was established, and the above workup was performed. No concerning leukocytosis, or anemia. Metabolic panel does not reveal any acute process. Troponin negative. EKG does not show any evidence of ST segment elevation myocardial infarction. It reveals normal sinus rhythm, rate of 80 bpm. No ectopy or ischemic change. There is evidence of a septal infarct, age undetermined however this was apparent on previous EKG. Patient was felt stable for discharge. Case was discussed with the attending physician. She was educated upon management, educated upon worrisome symptoms which to return, had questions expeditious, and were discharged home in good condition. I suspect she is likely experiencing a viral process. Likely a viral URI. In evaluation treatment this patient the following differential diagnoses were entertained: AL, PE, pneumonia, viral URI, strep throat, among others. Impression Primary Impression: Congestion of throat Departure Information Dispostion Home / Self-Care Condition GOOD Referrals Stevei Oh M.D. (PCP) Patient Instructions My [facility] [address] Additional Instructions You were seen in the emergency Department for congestion of your throat. Chest x-ray shows no pneumonia. I recommend humidifier, rest and adequate hydration. Please follow with your family doctor as you indicated this coming week. Please return with any new/concerning symptoms.
[2017-01-11 00:45] VITALS: BP 173/87; PULSE 84; O2SAT 96
--- NOTE | 2017-01-11 07:14 | DIAGNOSTIC IMAGING REPORT ---
SINGLE VIEW CHEST CLINICAL HISTORY: Cough. Chest congestion. FINDINGS: An AP, portable, upright chest radiograph is compared to study dated 11/09/2016 and correlated with chest CT dated 06/22/2016. The examination is degraded by portable technique and patient rotation. The heart is enlarged and there is atherosclerotic calcification of the thoracic aorta. The pulmonary vasculature is noncongested. Chronic interstitial thickening is similar to previous. Apical scarring is observed. There are left basilar opacities. The lungs are otherwise clear. No large pleural effusion or pneumothorax is seen. The skeletal structures are osteopenic. The bony thorax is grossly intact. IMPRESSION: 1. Cardiomegaly without radiographic evidence of congestive failure. 2. There are left basilar airspace opacities. This could represent atelectasis/scarring versus developing pneumonia. Clinical correlation will be required. Electronically signed by: Jeremy Fleming M.D. 01/11/2017 7:12 AM Dictated Date/Time: 01/11/2017 7:11 AM
== END 2017-01-11 00:46 | disposition home or self-care (01) ==
LOC: C.EDB 22:49 → C.EDC 01-11 00:46
DX: R09.89 Other specified symptoms and signs involving the circulatory and respiratory systems (principal); Z86.711 Personal history of pulmonary embolism; Z79.82 Long term (current) use of aspirin

== ENCOUNTER 2019-06-22 21:25 | Observation (INO) ==
[2019-06-22] MEDS ORDERED: ACETAMINOPHEN 500 MG TAB PO STA (21:51)
[2019-06-22] MEDS ORDERED: SODIUM CHLORIDE 0.9% 1000ML 500 ML IV ONE (21:54)
--- NOTE | 2019-06-22 21:57 | Emergency Department Note ---
Impression & Plan Right-sided chest pain, Pleuritic chest pain, Pulmonary emboli ED Provider Note NAME: SHEILA HODGES AGE: 88 SEX: F : 1930 ARRIVES VIA: Walk-In INFORMANT: [Patient] ED PROVIDER(S): [Jeremy Vyas MD] CHIEF COMPLAINT: Right chest pain HISTORY OF PRESENT ILLNESS: The patient is an 88-year-old female who presents to the ER with several hours of sharp right sided flank/chest pain. The patient states that she was slightly sore in the right chest but then, a very short time ago, she reached to move a heavy drawer and had increased pain. The pain is moderate in severity and worse with certain movements and taking a deep breath. She denies feeling short of breath. There has been no fever, chills, no increased cough. The patient denies fall or significant trauma. No urinary complaints or abdominal pain, no nausea, vomiting or diarrhea. The patient has not used anything for pain. Again, taking a breath and certain movements makes the pain worse, sitting still of course makes the pain better. REVIEW OF SYSTEMS: See HPI for pertinent positives and negatives. A total of ten systems were reviewed and were otherwise negative. PMHx/PSHx: See Below SOCIAL HISTORY: See Below. PHYSICAL EXAM: GENERAL: Patient is in no acute distress. HEENT: No acute trauma, normocephalic atraumatic, mucous membranes moist, no nasal congestion, no scleral icterus. NECK: No stridor, no adenopathy, no meningismus, trachea is midline. LUNGS: Clear to auscultation bilaterally, no wheeze, no rhonchi, breath sounds equal. HEART: Subtle systolic murmur, regular rhythm, mildly tachycardic. Chest: Nontender chest wall. Taking a deep breath worsens the pain. No rash seen. ABDOMEN: Soft, nontender, bowel sounds positive, no hernias, no peritonitis. EXTREMITIES: No cyanosis or edema, full range of motion of all the joints without pain or difficulty, no signs for acute trauma. NEUROLOGIC: Oriented x 3, no acute motor or sensory deficits, no focal weakness. SKIN: No rash, no jaundice, no diaphoresis. DIFFERENTIAL DIAGNOSIS: Cardiac ischemia, aortic dissection, pulmonary embolism, pneumothorax, pneumonia, pericarditis, rib fracture, contusion, myocarditis, esophageal rupture, GERD, cholecystitis, pancreatitis, musculoskeletal, as well as other pathologies. EMERGENCY DEPARTMENT COURSE/PROCEDURES: ECG: Indication was chest pain. The EKG shows a sinus rhythm with a PVC. The rate is 89. There is a potential old septal infarct and potential old inferior infarct. There is no ST elevation. The QTc is 413. Continuous Cardiac Monitoring: An order was placed for continuous cardiac monitoring. The monitor shows a rate of 83 with sinus rhythm with some PVCs. Critical Care Note: I have personally spent greater than 46 minutes of critical care time in the direct management of this patient. This includes bedside care, interpretation of diagnostic studies, and testing, discussion with consultants, patient, and family members, and other required patient management activities. This 46 minutes is in excess of all separately billable procedures. MEDICAL DECISION MAKING: There is no leukocytosis or concerning anemia. There is a normal platelet count. No coagulopathy. There is no significant electrolyte abnormality or kidney failure. Chest CT shows right-sided pulmonary emboli with a potential right sided pulmonary infarct. A small right pleural effusion was seen. No pneumonia. No right-sided heart strain seen on CT scan. The patient presents with pleuritic right-sided chest pain. She was initially slightly tachycardic. She was nontoxic, she was not hypoxic. Work-up here does show pulmonary emboli as a cause for her discomfort. Patient was given IV Tylenol, IV saline. She was placed on a heparin drip for anticoagulation purposes. The patient requires a hospital stay. She is currently on a heparin drip. I did speak to the patient and case management. The on-call hospitalist has been consulted. Past Med/Surg History Medical History Bronchitis (Resolved) Cervical radiculopathy (Inactive) Digestive problems (Chronic) Factor V Leiden Heart disease HTN (hypertension) (Chronic) Hyperlipidemia Hypothyroidism (Chronic) Mitral valve prolapse (Chronic) No significant past medical history Osteoporosis Pulmonary embolism (Inactive) Thoracic back pain (Resolved) Surgical History History of bilateral tubal ligation Family History Daughter Asthma Sister Ovarian cancer Stroke Father Stroke Heart disease Social History Preferred Language: Mongolian marital status: Current Living Situation: Spouse Feels Safe at Home: Yes Smoking Status: Never smoker Hx Alcohol Use: No Hx Substance Use: Yes substance use type: sedatives Seatbelt Use: always Sunscreen Use: No Allergies Allergies Allergy/AdvReac Type Severity Reaction Status Date / Time cucumber AdvReac Severe Nausea Verified 06/22/19 22:16 dextromethorphan AdvReac Mild tingling Verified 06/22/19 22:16 in feet and hands guaifenesin AdvReac Mild tingling Verified 06/22/19 22:16 in feet and hands yellow dye AdvReac Mild tingling Verified 06/22/19 22:16 in feet and hands formaldehyde AdvReac Unknown Unknown Verified 06/22/19 22:16 Formaldehyde SOLN Allergy Unknown Unknown Uncoded 06/22/19 22:16 Home Meds Home Medications Medication Instructions Recorded Confirmed digestive enzymes 1 cap PO DAILY #0 03/12/15 06/22/19 multivitamin with minerals 1 tab PO QAM #0 tab 03/12/15 06/22/19 aspirin [Aspir-81] 81 mg PO QAM #0 09/05/15 06/22/19 vitamin E 400 unit PO DAILY #0 cap 03/21/16 06/22/19 fluticasone propionate 50 2 sprays INTNAS DAILY PRN 10/19/18 06/22/19 mcg/actuation nasal spray,suspension cholecalciferol (vitamin D3) 25 1,000 units PO DAILY #0 cap 11/15/18 06/22/19 mcg (1,000 unit) capsule benzonatate 100 mg capsule 100 mg PO TID PRN cap 05/08/19 06/22/19 diazepam [Valium] 5 mg PO HS PRN 06/22/19 06/22/19 Previous Rx's Medication Instructions Recorded levothyroxine 50 mcg tablet 50 mcg PO DAILY #90 tab 12/28/18 ascorbic acid (vitamin C) 500 mg 500 mg PO DAILY #100 cap 05/08/19 capsule hawthorn 500 mg capsule 500 mg PO TID #90 cap 05/08/19 Results & Data (ED) Vital Signs Vital Signs - 24 hr 06/22/19 21:26 06/22/19 22:28 06/22/19 22:30 Temperature 36.8 C Temperature Source Oral Pulse Rate 107 H 86 87 Pulse Rate [Right Finger] Pulse Rate from SpO2 Sensor 82 84 Respiratory Rate 19 18 18 Blood Pressure 153/107 H 134/56 L Blood Pressure [Right Arm] Blood Pressure Mean 122 74 Blood Pressure Mean [Right Arm] Pulse Oximetry 94 93 93 Oxygen Delivery Method Room Air Sepsis Recent Fever Within 48 Hours No Sepsis Action Taken by Nursing No Action Required 06/22/19 23:00 06/22/19 23:01 06/22/19 23:17 Temperature Temperature Source Pulse Rate 88 88 Pulse Rate [Right Finger] 89 Pulse Rate from SpO2 Sensor 88 84 Respiratory Rate 14 22 19 Blood Pressure 164/67 H Blood Pressure [Right Arm] 164/68 H Blood Pressure Mean 121 Blood Pressure Mean [Right Arm] 100 Pulse Oximetry 96 96 93 Oxygen Delivery Method Room Air Sepsis Recent Fever Within 48 Hours Sepsis Action Taken by Nursing 06/22/19 23:43 06/22/19 23:58 06/23/19 00:00 Temperature Temperature Source Pulse Rate 100 H 90 89 Pulse Rate [Right Finger] 89 Pulse Rate from SpO2 Sensor Respiratory Rate 22 20 16 Blood Pressure 160/82 H 159/70 H Blood Pressure [Right Arm] 160/82 H Blood Pressure Mean 103 100 Blood Pressure Mean [Right Arm] 108 Pulse Oximetry 94 94 Oxygen Delivery Method Sepsis Recent Fever Within 48 Hours Sepsis Action Taken by Nursing 06/23/19 00:30 06/23/19 01:11 Temperature Temperature Source Pulse Rate 83 Pulse Rate [Right Finger] 90 Pulse Rate from SpO2 Sensor Respiratory Rate 14 20 Blood Pressure Blood Pressure [Right Arm] 149/78 H Blood Pressure Mean Blood Pressure Mean [Right Arm] 101 Pulse Oximetry 94 Oxygen Delivery Method Sepsis Recent Fever Within 48 Hours Sepsis Action Taken by [facility] Medications Current Medication List: was personally reviewed by me Laboratory Data Attestation: I reviewed the patient's lab results. Result diagrams: 06/22/19 22:20 06/22/19 22:20 Lab Results 06/22/19 06/22/19 06/22/19 Range/Units 22:20 22:20 22:20 WBC 6.80 (4.8-10.8) K/uL RBC 4.15 L (4.2-5.4) M/uL Hgb 14.5 (12.0-16.0) g/dL Hct 42.1 (37-47) % MCV 101.4 H (80-100) fL MCH 34.9 H (25-34) pg MCHC 34.4 (32-36) g/dL RDW Std Deviation 47.6 H (36.4-46.3) fL RDW Coeff of Shasha 12.7 (11.5-14.5) % Plt Count 172 (130-400) K/uL MPV 10.3 (7.4-10.4) fL PT Cancelled INR Cancelled APTT Cancelled PTT Ratio Cancelled Sodium 136 (136-145) mmol/L Potassium 3.8 (3.5-5.1) mmol/L Chloride 105 (98-107) mmol/L Carbon Dioxide 25 (21-32) mmol/L Anion Gap 6.0 (3-11) BUN 9 (7-18) mg/dl Creatinine 0.75 (0.6-1.2) mg/dl Est Cr Clr Drug Dosing 47.6 ml/min Est GFR ( Amer) 83.1 Est GFR (Non-Af Amer) 71.7 BUN/Creatinine Ratio 12.6 (10-20) Glucose 141 H (70-99) mg/dl Calcium 8.6 (8.5-10.1) mg/dl 06/22/19 Range/Units 23:12 WBC (4.8-10.8) K/uL RBC (4.2-5.4) M/uL Hgb (12.0-16.0) g/dL Hct (37-47) % MCV (80-100) fL MCH (25-34) pg MCHC (32-36) g/dL RDW Std Deviation (36.4-46.3) fL RDW Coeff of Shasha (11.5-14.5) % Plt Count (130-400) K/uL MPV (7.4-10.4) fL PT 11.8 INR 1.1 APTT 26.0 PTT Ratio 0.9 Sodium (136-145) mmol/L Potassium (3.5-5.1) mmol/L Chloride (98-107) mmol/L Carbon Dioxide (21-32) mmol/L Anion Gap (3-11) BUN (7-18) mg/dl Creatinine (0.6-1.2) mg/dl Est Cr Clr Drug Dosing ml/min Est GFR ( Amer) Est GFR (Non-Af Amer) BUN/Creatinine Ratio (10-20) Glucose (70-99) mg/dl Calcium (8.5-10.1) mg/dl Administered Medications Heparin Sodium/Dextrose (Heparin Sodium/Dextrose) 25,000 units in 500 mls @ 0.02 mls/hr IV .Q24H LIYAH; Protocol Stop: 07/23/19 00:14 Last Admin: 06/23/19 00:45 Dose: 1,050 units/hr, 21 mls/hr Documented by: [id number] Cosigned by: [id number] Ioversol (Optiray 320 125ml) 119 ml IV ONCE PRN PRN Reason: Interaction Checking Stop: 06/26/19 23:32 Last Admin: 06/22/19 23:34 Dose: 119 ml Documented by: [id number] Discontinued Medications Acetaminophen (Tylenol) 1,000 mg PO NOW STA Stop: 06/22/19 21:52 Last Admin: 06/22/19 23:06 Dose: Not Given Documented by: [id number] Heparin Sodium/Dextrose () 1 ea IV ONE ONE; Protocol Stop: 06/23/19 00:11 Last Admin: 06/23/19 00:45 Dose: 1 ea Documented by: [id number] Sodium Chloride (Nss 1000ml) 500 mls @ 999 mls/hr IV .Q31M ONE Stop: 06/22/19 22:24 Last Infusion: 06/22/19 23:19 Dose: 0 mls/hr Documented by: [id number] Admin: 06/22/19 23:07 Dose: 999 mls/hr Documented by: [id number] Imaging Data Radiologist's Impression: CT angio of the chest: The patient has acute pulmonary emboli within the right middle lobe and lower lobe. There is no right heart strain. There is atelectasis at both lower lobes more so on the right. There is a possible tiny pulmonary infarct in the right lower lobe periphery. There is a trace right pleural effusion. Blood Pressure Blood Pressure Findings: Elevated blood pressure Blood Pressure Disposition: further management by hospitalist Discharge Plan Visit Data Chief Complaint: Flank Pain Stated Complaint: RIGHT SIDE PAIN ED Provider: Jeremy Vyas Discharge Problem: Right-sided chest pain, Pleuritic chest pain, Pulmonary emboli Patient Disposition: Being Evaluated by Hospitalist Condition: Good Forms Stand Alone Forms: My [facility] Prescriptions Prescriptions: No Action digestive enzymes Capsule 1 cap PO DAILY Qty: 0 RF: 0 multivitamin with minerals Tablet 1 tab PO QAM Qty: 0 RF: 0 aspirin [Aspir-81] 81 mg Tablet,Delayed Release (Dr/Ec) 81 mg PO QAM Qty: 0 RF: 0 vitamin E 400 unit Capsule 400 unit PO DAILY Qty: 0 RF: 0 cholecalciferol (vitamin D3) 1,000 unit capsule 1,000 units PO DAILY Qty: 0 RF: 0 fluticasone propionate 50 mcg/actuation spray,suspension 2 sprays INTNAS DAILY PRN (Reason: Congestion) RF: 0 levothyroxine [Synthroid] 50 mcg tablet 50 mcg PO DAILY Qty: 90 RF: 3 benzonatate 100 mg capsule 100 mg PO TID PRN (Reason: cough) RF: 0 hawthorn 500 mg capsule 500 mg PO TID Qty: 90 RF: 0 ascorbic acid (vitamin C) 500 mg capsule 500 mg PO DAILY Qty: 100 RF: 0 diazepam [Valium] 5 mg tablet 5 mg PO HS PRN (Reason: sleep) RF: 0 Referrals Referrals: Stevie Oh MD [Primary Care Provider] - Discharge Problem: Pulmonary emboli Qualifiers: Pulmonary embolism type: unspecified Chronicity: acute Acute cor pulmonale presence: without acute cor pulmonale Qualified Code(s): I26.99 - Other pulmonary embolism without acute cor pulmonale
[2019-06-22 22:36] LABS: Hematocrit (blood only) 42.1 % (37-47); Hemoglobin 14.5 g/dL (12.0-16.0); Mean Corpuscular Hemoglobin 34.9 pg (25-34); Mean Corpuscular Hgb Conc 34.4 g/dL (32-36); Mean Corpuscular Volume 101.4 fL (80-100); Mean Platelet Volume 10.3 fL (7.4-10.4); Platelet Count 172 K/uL (130-400); RDW Coefficient of Variation 12.7 % (11.5-14.5); RDW Standard Deviation 47.6 fL (36.4-46.3); Red Blood Count 4.15 M/uL (4.2-5.4)
[2019-06-22 22:56] LABS: BUN Creatinine Ratio 12.6 (10-20); Calcium 8.6 mg/dl (8.5-10.1); Creatinine Clr Calc Pharmacy 47.6 ml/min; Est GFR (African American) 83.1; Est GFR (Non-African American) 71.7; Potassium 3.8 mmol/L (3.5-5.1)
[2019-06-22] MEDS ORDERED: OPTIRAY 320 125ml IV PRN (23:33)
[2019-06-22 23:40] LABS: INR 1.1 (0.9-1.1); Partial Thromboplastin Ratio 0.9; Prothrombin Time 11.8 Seconds (9.0-12.0)
[2019-06-23] MEDS ORDERED: Heparin IV Standard *NO* Bolus IV ONE (00:10)
[2019-06-23] MEDS: HEPARIN SODIUM/DEXTROSE 25,000 UNITS/500 ML BAG IV SCH (00:45)
--- NOTE | 2019-06-23 02:28 | History & Physical Report ---
Date of Service June 23, 2019 Assessment & Plan (1) Right-sided chest pain: Pleasant 88-year-old female with a past medical history of hypothyroidism, hypertension, PE and possible factor V Leiden mutation who is admitted for right-sided flank pain. 1. Right-sided flank pain Appears to be largely musculoskeletal in origin Reproducible on physical exam and is exacerbated by chest wall expansion with burping and coughing Presentation appears less likely to be pleurisy or pleuritic chest pain in setting of known MSK strain and normal CBC and chest CT. History of cholecystectomy makes GI origin of pain less likely. Lack of CVA tenderness with normal BMP makes cystitis or kidney involvement less likely as well. 2. Pulmonary emboli Was previously on Xarelto for a pulmonary embolus CT angio today did find a small distal pulmonary embolus. Unsure if this is the cause of patient's symptoms and presentation Medical history in chart states that patient has factor V Leiden syndrome however no hypercoagulable work-up results appear to be in the system. Patient states her father had a stroke secondary to clots when she was young and her daughter also has had multiple clots which require her to be on Xarelto daily Patient may benefit from a full hypercoagulable work-up to verify if she does indeed have factor V Leiden or another genetic mutation causing predisposition to clot formation Currently anticoagulated on 25,000 units of heparin as started by the emergency department Venous Dopplers done in the emergency department negative for DVT Labs for factor V Leiden,B2 glycoprotein, cardiolipin, VWF, and Prothrombin mutation initiated for the a.m. Due to patient being on heparin currently, Antithrombin III, protein C and S, lupus anticoagulant testing must wait for patient to be off of anticoagulation at least 5 days. Recommend following up outpatient with PCP for these labs as well as hematology if significant results return. PTT, PT/INR repeats ordered for the morning 3. Mild cognitive decline Patient is pleasantly slightly demented and tends to repeat herself, however she is fully alert and oriented and follows along with conversation and questions. DVT prophylaxis: 25,000 units of heparin currently running FEN/GI: Regular diet, encourage p.o. fluids CODE STATUS: Full code Disposal: [facility] (2) Pulmonary emboli: History of Present Illness Ms. Mary is a pleasant 88-year-old female with a past medical history of hypertension, hypothyroidism, mitral valve prolapse, history of PE treated with Xarelto who presents to the emergency department today for acute onset right flank pain. She states that she was in her normal state of health until earlier today when she attempted to push a very heavy dresser drawer while still laying in bed with her right hand. She emphasizes that the door was very heavy and she had to push it forward with her fingers rather than getting up to pull it out as she normally would have. She describes the pain as being a 4 out of 10 when she is sitting up or actively moving her right arm around. She denies any radiation of the pain, pain at rest, pain with taking a deep breath. She does say that the pain returns when she burps or coughs but that the pain is otherwise tolerable. She is unsure what caused her previous pulmonary embolism but does remember that she was on Xarelto for a number of months prior to being taken off of it. She also notes that she has a family history of blood clots and that her father had them when she was very young and that her daughter is currently on Xarelto daily. She denies having ever had a hypercoagulable work-up to identify the cause of the blood clots. She denies ever having had a clot in her legs. She is not currently taking any blood thinners. When she was on the Xarelto she denied having any episodes of hematemesis or hematochezia. She currently denies any bright red blood per rectum, in the stool, or dark tarry melanotic stools. Primary Care Provider: Stevie Oh MD Allergies Allergy/AdvReac Type Severity Reaction Status Date / Time cucumber AdvReac Severe Nausea Verified 06/22/19 22:16 dextromethorphan AdvReac Mild tingling Verified 06/22/19 22:16 in feet and hands guaifenesin AdvReac Mild tingling Verified 06/22/19 22:16 in feet and hands yellow dye AdvReac Mild tingling Verified 06/22/19 22:16 in feet and hands formaldehyde AdvReac Unknown Unknown Verified 06/22/19 22:16 Formaldehyde SOLN Allergy Unknown Unknown Uncoded 06/22/19 22:16 Home Medications Home Medications Medication Instructions Recorded Confirmed Type digestive enzymes 1 cap PO DAILY #0 03/12/15 06/22/19 History multivitamin with minerals 1 tab PO QAM #0 tab 03/12/15 06/22/19 History aspirin [Aspir-81] 81 mg PO QAM #0 09/05/15 06/22/19 History vitamin E 400 unit PO DAILY #0 cap 03/21/16 06/22/19 History fluticasone propionate 50 2 sprays INTNAS DAILY PRN 10/19/18 06/22/19 History mcg/actuation nasal spray,suspension cholecalciferol (vitamin D3) 25 1,000 units PO DAILY #0 cap 11/15/18 06/22/19 History mcg (1,000 unit) capsule levothyroxine 50 mcg tablet 50 mcg PO DAILY #90 tab 12/28/18 06/22/19 Rx ascorbic acid (vitamin C) 500 mg 500 mg PO DAILY #100 cap 05/08/19 06/22/19 Rx capsule benzonatate 100 mg capsule 100 mg PO TID PRN cap 05/08/19 06/22/19 History hawthorn 500 mg capsule 500 mg PO TID #90 cap 05/08/19 06/22/19 Rx diazepam [Valium] 5 mg PO HS PRN 06/22/19 06/22/19 History Past Med/Surg History Medical History Bronchitis (Resolved) Cervical radiculopathy (Inactive) Digestive problems (Chronic) Factor V Leiden Heart disease HTN (hypertension) (Chronic) Hyperlipidemia Hypothyroidism (Chronic) Mitral valve prolapse (Chronic) No significant past medical history Osteoporosis Pulmonary embolism (Inactive) Thoracic back pain (Resolved) Surgical History History of bilateral tubal ligation Family History Daughter Asthma Sister Ovarian cancer Stroke Father Stroke Heart disease Social History Preferred Language: Divehi Communication Ability: Effective Beliefs That Will Affect Care: None marital status: Current Living Situation: Spouse Feels Safe at Home: Yes Smoking Status: Never smoker Hx Alcohol Use: No Seatbelt Use: always Sunscreen Use: No Review of Systems Constitutional: no fever, no chills, no body aches and no fatigue Respiratory: no cough and no dyspnea Cardiovascular: no chest pain, no dyspnea and no edema Gastrointestinal: no abdominal pain, no nausea, no vomiting, no constipation and no diarrhea/loose stools Genitourinary: no dysuria Musculoskeletal: right sided flank/rib pain Physical Exam Constitutional: cooperative; no acute distress and not ill appearing Neck: normal visual inspection Respiratory: normal respiratory effort and able to speak in complete sent ences; no respiratory distress, no labored breathing, no retractions, no cough and no audible wheezes Auscultation: lungs clear to auscultation bilaterally; no crackles, no rales, no rhonchi and no wheezes Cardiovascular: Rate/Rhythm: regular rate and regular rhythm Heart Sounds: normal S1 and normal S2; no gallop, no murmur and no cardiac rub Vessels: posterior tibial pulses present Extremities: no pedal edema and no edema Gastrointestinal (Abdomen): Inspection/Auscultation: abdomen normal to inspection and normal bowel sounds; abdomen not distended Percussion/P alpation: abdomen soft; no guarding, abdomen not rigid and no abdominal mass mild tenderness to palpation in RUQ that elicits CC of flank pain. negative gómez's sign. no CVA tenderness. Musculoskeletal: mild tenderness to palpation of ribs 7-9 along lateral and posterior aspects.no point tenderness. No exacerbation of pain with crossing arms or circumferential shoulder movement Results & Data Results & Data ([facility]) Vital Signs (Past 12 Hours) Vital Signs Temp Pulse Pulse Resp BP BP Pulse Ox 06/23/19 02:06 89 17 159/67 H 94 06/23/19 01:11 90 20 149/78 H 94 06/23/19 00:30 83 14 06/23/19 00:00 89 16 159/70 H 06/22/19 23:58 90 89 20 160/82 H 160/82 H 94 06/22/19 23:43 100 H 22 94 06/22/19 23:17 89 19 164/68 H 93 06/22/19 23:01 88 22 96 06/22/19 23:00 88 14 164/67 H 96 06/22/19 22:30 87 18 93 06/22/19 22:28 86 18 134/56 L 93 06/22/19 21:26 36.8 C 107 H 19 153/107 H 94 Laboratory Results WBC 6.80 K/uL (4.8-10.8) 06/22/19 22:20 RBC 4.15 M/uL (4.2-5.4) L 06/22/19 22:20 Hgb 14.5 g/dL (12.0-16.0) 06/22/19 22:20 Hct 42.1 % (37-47) 06/22/19 22:20 MCV 101.4 fL (80-100) H 06/22/19 22:20 MCH 34.9 pg (25-34) H 06/22/19 22:20 MCHC 34.4 g/dL (32-36) 06/22/19 22:20 RDW Std Deviation 47.6 fL (36.4-46.3) H 06/22/19 22:20 RDW Coeff of Shasha 12.7 % (11.5-14.5) 06/22/19 22:20 Plt Count 172 K/uL (130-400) 06/22/19 22:20 MPV 10.3 fL (7.4-10.4) 06/22/19 22:20 PT 11.8 Seconds (9.0-12.0) 06/22/19 23:12 INR 1.1 (0.9-1.1) 06/22/19 23:12 APTT 26.0 Seconds (21.0-31.0) 06/22/19 23:12 PTT Ratio 0.9 06/22/19 23:12 Sodium 136 mmol/L (136-145) 06/22/19 22:20 Potassium 3.8 mmol/L (3.5-5.1) 06/22/19 22:20 Chloride 105 mmol/L (98-107) 06/22/19 22:20 Carbon Dioxide 25 mmol/L (21-32) 06/22/19 22:20 Anion Gap 6.0 (3-11) 06/22/19 22:20 BUN 9 mg/dl (7-18) 06/22/19 22:20 Creatinine 0.75 mg/dl (0.6-1.2) 06/22/19 22:20 Est Cr Clr Drug Dosing 47.6 ml/min 06/22/19 22:20 Est GFR ( Amer) 83.1 06/22/19 22:20 Est GFR (Non-Af Amer) 71.7 06/22/19 22:20 BUN/Creatinine Ratio 12.6 (10-20) 06/22/19 22:20 Glucose 141 mg/dl (70-99) H 06/22/19 22:20 Calcium 8.6 mg/dl (8.5-10.1) 06/22/19 22:20 Code Status & VTE Plan VTE Prophylaxis Plan VTE Prophylaxis will be ordered: Yes Supervising Physician Co-Signing Physician Notes Attending addendum: I have physically seen this patient, have supervised the medical residents activities, and agree with the H&P unless as otherwise noted. Assessment and Plan: Right middle lobe and right lower lobe pulmonary emboli/tiny right lower lobe pulmonary infarct/factor V Leiden- Heparin drip per protocol. We will likely resume Xarelto in the morning, as patient was on Xarelto for previous pulmonary embolism. For hypercoagulable work-up. Lower extremity venous Dopplers negative for DVT. Remainder of orders and notations as noted. Resident Activity Tracking Resident Involvement: Resident Care Provided Care Provided: Adult Hospital Medicine (1) Pulmonary emboli Acute cor pulmonale presence: without acute cor pulmonale Chronicity: acute Pulmonary embolism type: unspecified Qualified Code(s): I26.99 - Other pulmonary embolism without acute cor pulmonale
[2019-06-23] MEDS ORDERED: ACETAMINOPHEN 325 MG TAB PO PRN (03:04)
[2019-06-23] MEDS ORDERED: POLYETHYLENE (MIRALAX) 17 GM PACK PO PRN (03:04)
[2019-06-23] MEDS ORDERED: FLUTICASONE PROPIONATE NA SPR 16 GM BTL PRN (03:04)
[2019-06-23] MEDS ORDERED: diazePAM 5 MG TABLET PO PRN (03:04)
[2019-06-23] MEDS ORDERED: BENZONATATE 100 MG CAPSULE PO PRN (03:04)
[2019-06-23] MEDS ORDERED: ONDANSETRON INJ 2 MG/ML 2 ML VIAL IV PRN (03:04)
[2019-06-23] MEDS ORDERED: INFLUENZA VACCINE HIGH DOSE 65+ 0.5 ML SYR IM ONE (04:33)
[2019-06-23] MEDS ORDERED: INFLUENZA ADMINISTRATION CHARGE ONE (04:33)
[2019-06-23] MEDS: LEVOTHYROXINE SODIUM 50 MCG TABLET PO SCH (05:44)
--- NOTE | 2019-06-23 06:28 | CT Scan Report ---
CT angio chest PE protocol CLINICAL HISTORY: 88 years-old Female presenting with right-sided chest pain, clinical concern for pu lmonary embolus. TECHNIQUE: Multidetector CT angiography of the chest was performed after administration of intravenou s contrast. 3-D volumetric and/or maximum intensity projection (MIP) images were subsequently reconst ructed for review. IV contrast: 119 mL of Optiray 320. One or more dose lowering techniques were used consistent with the principles of ALARA (as low as reasonably achievable), including automatic expos ure control, mA or kV adjustment to individual patient size, and/or use of iterative reconstruction. COMPARISON: 02/07/2018. CT DOSE (mGy.cm): The estimated cumulative dose is 284.06 mGy.cm. FINDINGS: Dental Service Technician topogram: Unremarkable. Pulmonary vasculature: The study is adequate for assessment of the pulmonary vascular tree. Acute pulmonary embolus in the d istal right main pulmonary artery extending into the interlobar artery. Scattered acute pulmonary emb stevan in segmental and subsegmental pulmonary arteries in the right middle and lower lobes. Main pulmon tonio artery is not enlarged. No flattening of the interventricular septum. No intracardiac filling def ect. No reflux of contrast into the hepatic veins. Remaining chest: Soft tissues: Normal thyroid and thoracic inlet. No axillary, supraclavicular, mediastinal, or hilar lymphadenopathy. Trace atherosclerosis of the aorta. Top normal heart size. Coronary artery calcifica tion. Small right pleural effusion. 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 Lungs and airways: No pneumothorax. Central airways patent. Pulmonary arteries are not significantly enlarged relative to adjacent bronchi. No interlobular septal thickening. Dependent consolidation pre dominantly in the lower lobes and greater on the right consistent with atelectasis. Bandlike opacitie s at the right lung base also more extensive. There is a peripheral groundglass focal infiltrate in t he lateral basal right lower lobe. Pleural parenchymal scarring noted at the apices bilaterally. Musculoskeletal: Degenerative changes of the spine. IMPRESSION: 1. Acute pulmonary emboli in the distal right main pulmonary artery and extensively in the right mid dle and lower lobes. No CT evidence of right heart strain. 2. Small right pleural effusion and associated atelectasis. 3. Subpleural groundglass infiltrate in the lateral basal right lower lobe. While this also most lik payal represents atelectasis, focal hemorrhage or less likely developing infarct are differential consi derations. These findings were discussed with Dr. Vyas by Dr. Mcbride on 06/23/2019 4:00 AM. ACT 112: Negative or not required by law. Electronically signed by: Stevie Gomez M.D. 06/23/2019 6:27 AM
--- NOTE | 2019-06-23 06:31 | Ultrasound Report ---
US venous doppler LE BI CLINICAL HISTORY: 88 years-old Female presenting with pulmonary embolus, evaluate for dvt. TECHNIQUE: Real-time grayscale and color and spectral Doppler ultrasound imaging of the veins of the bilateral lower extremities was performed. Compression and augmentation were also utilized. COMPARISON: 11/09/2016. FINDINGS: RIGHT: Common femoral vein: Patent. Greater saphenous vein (superficial): Patent. Deep femoral vein: Patent. Femoral vein: Patent. Popliteal vein: Patent. Calf veins: Patent. LEFT: Common femoral vein: Patent. Greater saphenous vein (superficial): Patent. Deep femoral vein: Patent. Femoral vein: Patent. Popliteal vein: Patent. Calf veins: Patent. Other: None. IMPRESSION: No evidence of deep venous thrombosis. ACT 112: Negative or not required by law. Electronically signed by: Stevie Gomez M.D. 06/23/2019 6:30 AM
[2019-06-23 07:06] LABS: INR 1.2 (0.9-1.1); Partial Thromboplastin Ratio 3.2; Prothrombin Time 12.3 Seconds (9.0-12.0)
[2019-06-23 07:47] LABS: Partial Thromboplastin Time 89.6 Seconds (21.0-31.0)
[2019-06-23] MEDS: CHOLECALCIFEROL 1,000 UNITS 25 MCG TAB PO SCH (08:19)
[2019-06-23] MEDS: TOCOPHERYL, DL-ALPHA 400 UNITS CAP PO SCH (08:19)
[2019-06-23] MEDS: CEROVITE ADV FORMULA TAB PO SCH (08:20)
[2019-06-23] MEDS: ASPIRIN 81 MG ECTAB PO SCH (08:21)
[2019-06-23] MEDS: ASCORBIC ACID 500 MG TAB PO SCH (08:22)
[2019-06-23] MEDS ORDERED: DIGESTIVE ENZYMES PO SCH (09:00)
[2019-06-23] MEDS ORDERED: HAWTHORN PO SCH (09:00)
--- NOTE | 2019-06-23 10:48 | Electrocardiogram Report ---
Test Reason : Blood Pressure : / mmHG Vent. Rate : 089 BPM Atrial Rate : 089 BPM P-R Int : 156 ms QRS Dur : 082 ms QT Int : 340 ms P-R-T Axes : 067 -42 071 degrees QTc Int : 413 ms Sinus rhythm with occasional Premature ventricular complexes Left axis deviation Abnormal ECG When compared with ECG of 21-MAR-2019 04:21, Premature ventricular complexes are now Present Confirmed by Isael Elias ([id number]) on 06/23/2019 10:47:55 AM Referred By: REFERRED SELF Confirmed By:Familia Elias
--- NOTE | 2019-06-23 14:52 | Hospitalist Progress Note ---
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 is uncertain if genetic testing was done at that time Daughter with hx of PE, (step-father to pt's daughter) is unclear as to genetic dx for daughter, but she is on life long xarelto Pt's father and sister with hx of blood clots as well Hypercoag panel pending, however was not drawn prior to start of heparin in ED Continue hep, will start xarelto in AM LE US neg for DVT (2) Pulmonary emboli: As above (3) Cognitive decline: Patient is pleasantly slightly demented and tends to repeat herself, however she is fully alert and oriented and follows along with conversation and questions. (4) Hypothyroidism: continue home meds (5) HTN (hypertension): No medications noted (6) Mitral valve prolapse: Noted (7) DVT prophylaxis: As above Admission and Anticipated Discharge Date Admission Date: June 23, 2019 Subjective Pt is feeling much better. She has no pain at rest to her R thoracic region. She is quite convinced that her pain started after closing a very heavy drawer from an awkward angle while still in bed. She is tolerating PO without issue. Pt denies fever, SOB, chest pain, abd pain, n/v/c/d, LE pain or swelling. Spoke with and he states that pt did note some SOB yesterday before coming to the ED. does agree that pt did not note any pain until after she closed the heavy drawer as noted above. He states that pt has not been sleeping well due to COVID restrictions. She is upset about the loss of freedom associated with the current situation. Her PO intake has been low as well the last few weeks, which her thinks is also related to COVID concerns. Review of Systems Review of Systems: Pertinent positives and negatives reviewed in HPI--all others negative Physical Exam Constitutional: WD/WN, vitals as above Eyes: normal visual ramirez by confrontation and + anicteric sclerae Neck: normal visual inspection and trachea midline Respiratory: normal respiratory effort; no respiratory distress Auscultation: no crackles and no wheezes pain noted to R posterior chest wall with deep inspiration Cardiovascular: Rate/Rhythm: regular rate and regular rhythm Gastrointestinal (Abdomen): Inspection/Auscultation: abdomen not distended Percussion/Palpation: abdomen soft; abdomen nontender Musculoskeletal: Head/Neck/Chest: normocephalic and head atraumatic negative for edema, peripheral pulses intact Skin: no rashes, warm and dry Neurologic: awake and + confused (no overt confusion, but repeats statements quite often) Speech / Cognition: normal speech Psychiatric: A+Ox3, euthymic affect Results & Data Results & Data ([facility]) Vital Signs (Past 12 Hours) Vital Signs Temp Pulse Resp BP Pulse Ox 06/23/19 07:21 36.9 C 80 16 139/67 94 06/23/19 04:09 36.8 C 94 H 18 147/77 H 94 PG Care Time/CCT Total # of Minutes Spent Total Time Spent with Patient: Total time spent is greater than 50% in coordination of care (as documented) at patient's floor/unit and/or counseling patient: Coding Level of Care Code 02015 Subseq Hosp Care Lvl 3 Diagnoses Right-sided chest pain R07.9 Pulmonary emboli I26.99 Acute cor pulmonale presence: without acute cor pulmonale Chronicity: acute Pulmonary embolism type: unspecified Cognitive decline R41.89 Hypothyroidism E03.9 Hypothyroidism type: acquired HTN (hypertension) I10 Hypertension type: essential hypertension Mitral valve prolapse I34.1 DVT prophylaxis Z29.9 (1) Pulmonary emboli Acute cor pulmonale presence: without acute cor pulmonale Chronicity: acute Pulmonary embolism type: unspecified Qualified Code(s): I26.99 - Other pulmonary embolism without acute cor pulmonale (2) Hypothyroidism Hypothyroidism type: acquired Qualified Code(s): E03.9 - Hypothyroidism, unspecified (3) HTN (hypertension) Hypertension type: essential hypertension Qualified Code(s): I10 - Essential (primary) hypertension
[2019-06-23 14:59] LABS: Partial Thromboplastin Ratio 3.7
[2019-06-23 15:10] LABS: Partial Thromboplastin Time 103.2 Seconds (21.0-31.0)
[2019-06-23 22:55] LABS: Partial Thromboplastin Ratio 3.6
[2019-06-23 23:00] LABS: Partial Thromboplastin Time 101.1 Seconds (21.0-31.0)
[2019-06-24] MEDS: HEPARIN SODIUM/DEXTROSE 25,000 UNITS/500 ML BAG IV SCH (00:15)
[2019-06-24] MEDS: LEVOTHYROXINE SODIUM 50 MCG TABLET PO SCH (05:16)
--- NOTE | 2019-06-24 05:29 | Billing Data ---
Date of Service June 24, 2019 Coding Level of Care Code 50467 Initial Inpt Care Lvl 3
[2019-06-24 08:05] LABS: Partial Thromboplastin Ratio 2.7
[2019-06-24 08:07] LABS: Partial Thromboplastin Time 76.7 Seconds (21.0-31.0)
[2019-06-24] MEDS: ASPIRIN 81 MG ECTAB PO SCH (08:14)
[2019-06-24] MEDS: CEROVITE ADV FORMULA TAB PO SCH (08:14)
[2019-06-24] MEDS: ASCORBIC ACID 500 MG TAB PO SCH (08:15)
[2019-06-24] MEDS: TOCOPHERYL, DL-ALPHA 400 UNITS CAP PO SCH (08:15)
[2019-06-24] MEDS: CHOLECALCIFEROL 1,000 UNITS 25 MCG TAB PO SCH (08:15)
[2019-06-24] MEDS ORDERED: RIVAROXABAN 20 MG TAB PO SCH (09:00)
[2019-06-24 10:37] LABS: Hematocrit (blood only) 38.8 % (37-47); Hemoglobin 13.6 g/dL (12.0-16.0); Mean Corpuscular Hgb Conc 35.1 g/dL (32-36); Mean Corpuscular Volume 99.7 fL (80-100); Mean Platelet Volume 10.3 fL (7.4-10.4); Platelet Count 198 K/uL (130-400); RDW Coefficient of Variation 12.6 % (11.5-14.5); RDW Standard Deviation 45.9 fL (36.4-46.3); Red Blood Count 3.89 M/uL (4.2-5.4); White Blood Count 5.35 K/uL (4.8-10.8)
--- NOTE | 2019-06-24 11:43 | Discharge Summary ---
Date of Service June 24, 2019 Principal Diagnosis Pt has no pain to her R posterior chest wall. She has had no issues breathing. Nursing states she was a bit confused this morning in terms of where she was and had ongoing conversational repetition. She was otherwise pleasant. Pt denies fever, SOB, chest pain, abd pain, n/v/c/d, LE pain or swelling. I spoke with pt's and he said "she wants to come home bad" when he spoke with her earlier. She has been tolerating PO without issue. Discharge Exam Constitutional WD/WN, vitals as above Eyes normal visual ramirez by confrontation and + anicteric sclerae Neck normal visual inspection and trachea midline Respiratory normal respiratory effort; no respiratory distress Auscultation: no crackles and no wheezes Cardiovascular Rate/Rhythm: regular rate and regular rhythm Gastrointestinal (Abdomen) Inspection/Auscultation: abdomen not distended Percussion/Palpation: abdomen soft; abdomen nontender Musculoskeletal Head/Neck/Chest: normocephalic and head atraumatic Skin no rashes, warm and dry Neurologic awake and + confused (no overt confusion, but repeats statements quite often) Speech / Cognition: normal speech Psychiatric A+Ox3, euthymic affect Discharge Data Allergies Allergy/AdvReac Type Severity Reaction Status Date / Time cucumber AdvReac Severe Nausea Verified 06/22/19 22:16 dextromethorphan AdvReac Mild tingling Verified 06/22/19 22:16 in feet and hands guaifenesin AdvReac Mild tingling Verified 06/22/19 22:16 in feet and hands yellow dye AdvReac Mild tingling Verified 06/22/19 22:16 in feet and hands formaldehyde AdvReac Unknown Unknown Verified 06/22/19 22:16 Formaldehyde SOLN Allergy Unknown Unknown Uncoded 06/22/19 22:16 Consultations 06/23/19 00:05 ED Decision to Admit Stat 06/23/19 03:04 Consult Case Management - Discharge Planning Routine Ordered Studies 06/22/19 21:51 CT angio chest PE protocol Stat 06/23/19 00:05 US venous doppler [facility] Urgent Hospital Course (1) Right-sided chest pain: Posterior chest wall pain, reproducible with palpation and deep inspiration Noted initially after using poor UE mechanics to close a heavy drawer without getting out of bed CTA noted for distal R main pulm art and extensive RML/RLL PE 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 is uncertain if genetic testing was done at that time Daughter with hx of PE, (step-father to pt's daughter) is unclear as to genetic dx for daughter, but she is on life long xarelto Pt's father and sister with hx of blood clots as well Hypercoag panel pending, however was not drawn prior to start of heparin in ED LE US neg for DVT Pt transitioned to xarelto this AM. She has tolerated this medication in the past. d/c with xarelto 15mg BID x21 days, then to 20mg QD (2) Pulmonary emboli: As above (3) Hypothyroidism: continue home meds (4) HTN (hypertension): continue home meds (5) Mitral valve prolapse: Noted (6) Cognitive decline: Mild short term memory loss [place] memory appears intact Repetition of ideas, questions mainly although occasionally needing redirected as to why she is in the hospital, etc Total Time Total Time Spent Total Time Spent (In Minutes): >30 Total Time Includes: Examination of the Patient, Discharge Planning, Medication Reconciliation and Other Discharge Plan Discharge Items Patient Disposition: Home - Self-Care Reason For Visit: FLANK PAIN, PE Discharge Diagnosis: Pulmonary embolus Condition on Discharge: Good Activity: Resume your previous activity Non-emergency contact: Primary Care Provider Call non-emergency contact if: you have any medication questions and your symptoms worsen Follow-up/Referrals: Stevie Oh MD [Primary Care Provider] - Diet: Regular Addtl Attending Provider Instructions: You should been seen by your primary care office this week. You are being given 2 different prescriptions for xarelto. You will start with the 15mg and you will take 1 tablet in the morning and 1 in the evening. You should take these about 12 hours apart. You will do this for 21 days. After you finish this bottle, you will start taking the 20mg tablet, but just 1 time a day. Do not start taking the 20mg tablet until you finish the 15mg twice a day tablets. Pending Studies at Discharge: Yes Studies:: Hypercoag panel Stand-Alone Forms: My [employer], Smoking Cessation Medications and DC Order Prescriptions: New Xarelto 20 mg Tablet 20 mg PO DAILY Qty: 30 RF: 0 Xarelto 15 mg tablet 15 mg PO BID 21 Days Qty: 42 RF: 0 Continued digestive enzymes Capsule 1 cap PO DAILY Qty: 0 RF: 0 multivitamin with minerals Tablet 1 tab PO QAM Qty: 0 RF: 0 vitamin E 400 unit Capsule 400 unit PO DAILY Qty: 0 RF: 0 cholecalciferol (vitamin D3) 1,000 unit capsule 1,000 units PO DAILY Qty: 0 RF: 0 fluticasone propionate 50 mcg/actuation spray,suspension 2 sprays INTNAS DAILY PRN (Reason: Congestion) RF: 0 levothyroxine [Synthroid] 50 mcg tablet 50 mcg PO DAILY Qty: 90 RF: 3 benzonatate 100 mg capsule 100 mg PO TID PRN (Reason: cough) RF: 0 hawthorn 500 mg capsule 500 mg PO TID Qty: 90 RF: 0 ascorbic acid (vitamin C) 500 mg capsule 500 mg PO DAILY Qty: 100 RF: 0 diazepam [Valium] 5 mg tablet 5 mg PO HS PRN (Reason: sleep) RF: 0 Discontinued aspirin [Aspir-81] 81 mg Tablet,Delayed Release (Dr/Ec) 81 mg PO QAM Qty: 0 RF: 0 Discharge Orders: Discharge Order (Routine); Ordered 06/24/19 Ordered By: Jada Hartman Admission Data Admit Date/Time: 06/23/19 02:09 Attending Provider: Jada Hartman Admit Provider: Sowmya Khan Primary Care Provider: Stevie Oh Other Providers: Yamil Savage Other Interventions: Discharge Summary Assessment (RN) Last Done: 06/24/19 12:55 DC Date/Time DO NOT enter until pt leaves facility: 06/24/19 14:15 Coding Level of Care Code D/C Day Management >30 mins Diagnoses Right-sided chest pain R07.9 Pulmonary emboli I26.99 Acute cor pulmonale presence: without acute cor pulmonale Chronicity: acute Pulmonary embolism type: unspecified Hypothyroidism E03.9 Hypothyroidism type: acquired HTN (hypertension) I10 Hypertension type: essential hypertension Mitral valve prolapse I34.1 Cognitive decline R41.89
--- NOTE | 2019-06-29 09:46 | Coding Query ---
A supporting diagnosis is required for the test/procedure performed on this patient in order for us to be reimbursed by the patient's insurance. Please provide a supporting diagnosis for the following test/procedure listed below next to the test name along with your signature. *If there is no additional diagnosis for this patient that would support the following test/procedure please document that below next to the test/procedure. Test(s)/Procedure(s) that require a supporting diagnosis: * 76402 F2 GENE DIAGNOSIS: Pulmonary embolism * 41980 F5 GENE DIAGNOSIS: Pulmonary embolism DATE OF SERVICE: 06/23/19 Provider Signature: Date: Thank you Jeromy Carlos [facility] Information Management Once completed, please kindly fax back to [phone] For questions please call [phone] ELSA
[2019-06-29 18:29] LABS: Anti Cardiolipin Ab IgG <14 GPL; Anti Cardiolipin Ab IgM <12 MPL; Anti-Cardiolipin Ab IgA <11 APL; B2 Glycoprotein IgA <9 SAU (<=20); B2 Glycoprotein IgG <9 SGU (<=20); B2 Glycoprotein IgM <9 SMU (<=20); Von Willebrand Factor Antigen 291 % (50-217)
== END 2019-06-24 14:15 | disposition home or self-care (01) ==
LOC: ED 21:25 → 2N 06-23 02:09 → INTOOBSV 06-23 02:09 → SUATTDRO 06-23 02:09 → 2N 06-23 02:35